=== PATIENT | female | born 1990 | race Caucasian/White ===

== ENCOUNTER 2019-09-06 11:58 | Emergency (ER) | payer MEDICAID, SELFPAY ==
[2019-09-06 12:00] VITALS: BP 109/73; PULSE 87; RESP 17; TEMP 36.9; O2SAT 99; BMI 26.4
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
--- NOTE | 2019-09-06 13:28 | ED.RN ---
pt very agitated. Pt spoke with social work and wants help with addiction. Pt stating that she needs suboxone or an opiate right now to get her through. she continued to say that she was sick and that she could get on a plane and be at a suboxone clinic today. Social work tried to explain to her that we could help her here and she wanted something immediately instead of a few hours. Pt denied suicidal ideations to multiple staff members. Pt left the department and is planning on flying to [place] to get into the suboxone clinic today.
== END 2019-09-06 13:32 | disposition home or self-care (01) ==
LOC: ED 12:39
PROVIDERS: Emergency Provider Emergency Medicine
DX: F15.10 Other stimulant abuse, uncomplicated (principal); F11.10 Opioid abuse, uncomplicated; F17.200 Nicotine dependence, unspecified, uncomplicated
CPT/HCPCS: 99283

== ENCOUNTER 2019-09-13 22:16 | Inpatient (IN) | payer MEDICAID, SELFPAY ==
[2019-09-13 22:19] VITALS: BP 136/78; PULSE 71; RESP 20; TEMP 36.7; O2SAT 98; BMI 26.6
--- NOTE | 2019-09-13 22:23 | EKG12_ITS ---
Test Reason : SUICIDAL Blood Pressure : / mmHG Vent. Rate : 079 BPM Atrial Rate : 079 BPM P-R Int : 126 ms QRS Dur : 086 ms QT Int : 380 ms P-R-T Axes : 034 045 025 degrees QTc Int : 435 ms Normal sinus rhythm Normal ECG Confirmed by MATT MORAN ([id number]), editor managing newspaper NICK MUÑOZ ([id number]) on 09/17/2019 3:42:48 PM Referred By: PAULA Confirmed By:MATT MORAN
--- NOTE | 2019-09-13 22:24 | ED.VIS.GEN ---
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 Patient was seen here about a week ago. At that point, she states that she was going through withdrawal but had a plan set up to get into a detox program. She was depressed, but had made no threats of self-harm. She was discharged home. [place], police were called to the house. She apparently had told her parents that she had plan to kill herself. She had told the deputy that if we discharge her from the emergency department, she would stay outside and intent to freeze to . She also told her parents that she was going to kill their other child who was at work. The patient does admit to heroin and methamphetamine use. She has not been hospitalized for suicidal thoughts before she states. Prior similar symptoms: Yes Recent Illness/Hospitalization: No Past Medical History - Allergies and Home Meds Allergies/Adverse Reactions: Allergies clindamycin Adverse Reaction (Verified 09/13/19 22:17) Vomiting red meats Allergy (Uncoded 09/13/19 22:17) Food Allergy Primary Care Physician: Care Physician,No Primary [Primary Care Provider] - Prior records reviewed: Yes Past Medical History: - - History of drug abuse Surgical History: noncontributory Smoking Status: Current every day smoker Review of Systems General: Denies: Chills, Fever, Sweats Eyes: Denies: Visual changes - bilaterally, Diplopia ENT: Denies: Rhinorrhea, Sore throat Cardiovascular: Denies: Chest pain, Palpitations Respiratory: Denies: Dyspnea, Cough, Dyspnea on exertion Gastrointestinal: Denies: Abdominal pain, Nausea, Vomiting, Diarrhea, Melena, Hematochezia Genitourinary: Denies: Dysuria, Hematuria, Frequency Musculoskeletal: Reports: Arthralgias. Denies: Back pain, Extremity Pain Skin: Denies: Rash, Wounds Neurological: Denies: Headache, Weakness, Numbness Psych: Reports: Depression, Suicidal thoughts Physical Exam Inital Vital Signs reviewed: Yes General: Well nourished, Well developed, Unkempt, No Acute Distress Head: Normocephalic, Atraumatic Eyes: Perrl, EOMI ENT: Moist mucous membranes, No rhinorrhea Neck: Supple, Nontender Cardiovascular: Regular rate, Regular rhythm, No murmurs Respiratory: No distress, CTA bilaterally, Chest nontender Abdomen: Soft, Nontender, Nondistended, Normal bowel sounds Back: Nontender, Normal Inspection Extremities: Nontender, No edema Skin: Normal color, No rash Neurological: Oriented x3, Cranial nerves II-XII grossly intact, Normal Strength, Normal Sensation, Hyperalert Psychological: Depressed, Agitated Diagnostic/Tx/Re-eval - Medical Decision Making The patient presents with decompensated behavior. She was making suicidal threats, had threatened her father, and had threatened her brother. She also made threats to the police that if she was discharged, she would try to hide outside and freeze to so she would . The patient is disorganized in her speech, but I do feel that she is a significant risk to herself. She was agitated towards nursing staff, so she was given Geodon, Benadryl, and Ativan. Screening labs will be obtained. The plan will be for crisis evaluation given the patient's suicidal and homicidal threats. Disposition is currently pending. Impression 1. Suicidal ideation with plan 2. Homicidal ideation ED Disposition - Plan for ED Patient: Referrals: Care Physician,No Primary [Primary Care Provider] -
--- NOTE | 2019-09-13 22:26 | ED.RN ---
EKG DELAYED TILL PT CALMS DOWN
--- NOTE | 2019-09-13 22:45 | ED.RN ---
patient denies any SI comments to nursing staff. [facility] has statments from family stating patient has made comments tonight with a plan. Patient placed in SI precautions at this time until patient can been seen by crisis
[2019-09-13] MEDS: LORazepam 1 MG Tablet 2 MG PO (23:00)
[2019-09-13] MEDS: DiphenhydrAMINE 25 MG Capsule 50 MG PO (23:00)
[2019-09-13] MEDS: Ziprasidone IM 20 MG/ML VIAL IM (23:11)
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
[2019-09-13 23:23] VITALS: RESP 16
[2019-09-13 23:59] LABS: Absolute Lymphocyte Count 2.44 X10^3/uL (0.83-4.51); Absolute Neutrophil Count 2.1 X10^3/uL (2.0-7.7); Basophil# 0.04 X10^3/uL; Basophil% 0.8 % (0-1); Eosinophil# 0.36 X10^3/uL; Eosinophils% 6.8 % (0-5); Hematocrit 37.9 % (37-47); Hemoglobin 12.7 g/dL (12.0-15.0); Lymphocyte # 2.44 X10^3/ul (4.0); Lymphocyte % 45.9 % (19-41); Mean Corp Hgb Conc 33.5 g/dL (32-36); Mean Corpuscular Hgb 31.1 pg (27.0-32.0); Mean Corpuscular Volume 92.7 fL (81-99); Mean Platelet Vol. 8.9 fl (6.2-12.0); Monocyte# 0.36 X10^3/uL; Monocyte% 6.8 % (0-10); NRBC Flagged by Analyzer 0 % (0-5); Neutrophil # 2.11 X10^3/uL (2.7-7.7); Neutrophil % 39.5 % (47-70); Platelet Count 279 K/mm3 (150-450); RBC Distribution Width CV 13.2 % (11.6-14.6); RBC Distribution Width SD 44.3 fl (35.1-43.9); Red Blood Count 4.09 M/mm3 (4.2-5.4); White Blood Count 5.3 K/mm3 (4.4-11.0)
[2019-09-14] VITALS (25 sets, daily range): BP systolic 98–126; BP diastolic 57–87; PULSE 60–120; RESP 12–18; TEMP 36.6–36.9; O2SAT 89–100; BMI 25.1
[2019-09-14 00:16] LABS: ALB/GLOB Ratio 0.9 RATIO (0.9-2.4); AST(SGOT) 6 U/L (15-37); Alanine Aminotransfer ALT/SGPT 11 U/L (13-56); Albumin, Serum 3.2 g/dL (3.2-5.0); Alkaline Phosphatase 67 U/L (45-117); Anion Gap 4 (5-15); BUN 10 mg/dL (7-18); BUN/Creat Ratio 12.8 RATIO (10-20); Calcium,Total 8.8 mg/dL (8.5-10.1); Chloride 110 mmol/L (98-107); Creatinine, Serum 0.78 mg/dL (0.55-1.02); EST Glomerular Filtration Rate 92 mL/min (>60); Est Glom Filt Rate - Afr Amer 111 mL/min (>60); Estimated Creatinine Clearance 97.83 ml/min; Globulin 3.6 g/dL (2.2-4.2); Glucose 96 mg/dL (74-106); Internal QC Validated? YES +Cl - CLEAR BKGD; Potassium 3.8 mmol/L (3.5-5.1); Pregnancy, Serum, hCG Quali. NEGATIVE Negative; Protein, Total 6.8 g/dL (6.4-8.2); Sodium Level 143 mmol/L (136-145)
[2019-09-14 00:19] LABS: Alcohol, Blood (Medical)-Serum < 3.0 mg/dL
[2019-09-14 00:40] LABS: Amphetamine Urine VISTA POSITIVE (<1000 ng/mL); Barbiturate Urine VISTA NEGATIVE (< 200 ng/mL); Benzodiazepine Urine VISTA NEGATIVE (< 200 ng/mL); Cocaine Urine VISTA NEGATIVE (< 300 ng/mL); Ecstacy Urine VISTA NEGATIVE (< 500 ng/mL); Methadone Urine VISTA NEGATIVE (< 300 ng/mL); PCP Urine VISTA NEGATIVE (< 25 ng/mL); THC Urine VISTA NEGATIVE (< 50 ng/mL); Vista UDS pH Range 6
--- NOTE | 2019-09-14 00:40 | ED.RN ---
crisis called to see patient at this time
--- NOTE | 2019-09-14 00:42 | ED.RN ---
crisis called back to see patient
--- NOTE | 2019-09-14 01:26 | ED.RN ---
PER MARIN FROM CRISIS, THE PT IS UNABLE TO BE ASSESSED PROPERLY, DUE TO NOT WAKING. [facility] IS REQUIRING A FULL ASSESSMENT BEFORE REFERRAL. [facility] WILL BE HERE FIRST THING IN THE MORNING FOR THIS ASSESSMENT
[2019-09-14 01:40] LABS: CPK Total, Creatine Kinase 47 U/L (26-192); Thyroid Stim Hormone (TSH) 1.84 uIU/mL (0.358-3.74)
--- NOTE | 2019-09-14 05:33 | ED.RN ---
breakfast order placed with dietary.
--- NOTE | 2019-09-14 09:21 | NURSING ---
Sp[facility] with [facility]; updated that pt awakens but not interactive at this time; they are waiting until pt more awake in order to do a full assessment.
--- NOTE | 2019-09-14 10:31 | ED.RN ---
this rn into room to offer food and drink. pt states not hungry nor thirsty at this point
--- NOTE | 2019-09-14 10:42 | ED.RN ---
crises contacted. will be in to assess pt
--- NOTE | 2019-09-14 11:53 | ED.RN ---
jonny here to evaluate pt.
--- NOTE | 2019-09-14 12:53 | ED.RN ---
talked with crises worker. plan to hospitalize pt at [facility]. decision to not tell pt at this time due to pt becoming agitated
--- NOTE | 2019-09-14 13:14 | ED.DCSUM_ITS ---
- ER Visit Summary Date of Service: 09/14/19 Patient was seen by me in signout. She is calm and collected I talked to crisis, she will be pink slipped since she did threaten to kill others and kill herself she still tells us that she hates her brother and has quite a bit of animosity towards him. For her safety and the safety of others she will be pink slipped. So far she remains physically stable, she is angry but she is calm and has not needed further sedation. This note was generated with [employer] dictation software. It may contain incorrect words, spelling, and punctuation that were not noted in review of the chart prior to signing ED Disposition - Plan for ED Patient: Referrals: Care Physician,No Primary [Primary Care Provider] -
--- NOTE | 2019-09-14 13:17 | ED.RN ---
pt informed of decision to hospitalize pt for psychiatric treatment. hro officer kaylyn at bedside. pt requesting to smoke. understands our protocol does not allow this. pt will be given nicoderm pts
--- NOTE | 2019-09-14 13:53 | ED.RN ---
Rosanna from crises in to talk with pt again per pt request. pt becomes extremely agitated. pt up pacing from side to side. pt in face of crises worker and in pt face. this rn summoned security. pt continues to be aggressive towards staff. this rn walks in room after concern for crises member safety. pt angry. pt demands cigarette and Suboxone. aware that that will not occur at this fcility. pt states unable to use nicoderm patch because she becomes very sick. while crises and security in room pt begins to yell that just give me a huge shot of fentanyl and let that be the end of things. when confronted with statement that that sounds like pt wants to pt becomes angry again. this rn attempted to talk with pt. agreement that if pt can remain in bed,remain nonaggressive pt will not be medicated. pt aware if she gets out of bed or threatens anyone she will be medicated
--- NOTE | 2019-09-14 15:03 | ED.RN ---
Rosanna from [facility] called to say that info has been faxed to [facility]. Rosanna states that [facility] will review and contact this hospital by 11 pm to verify pt acceptance. Rosanna states that [facility] is currently working off a wait list and earliest possible date for a room assignment at this time is possibly as late as Tuesday. [facility] states they will continue to check in on patient and update as necessary
--- NOTE | 2019-09-14 17:48 | ED.RN ---
pt again requesting a nicoderm patch. this rn asked pt again regarding the fact she states she gets sick. pt states i just said that because i wanted a real cigarrette. dr padilla. patch ordered
--- NOTE | 2019-09-14 22:05 | ED.RN ---
2100: DR. TAYLOR NOTIFIED THAT PT STATES SHE FEELS LIKE SHE IS WITHDRAWING WITH LAST HEROIN USE ON THE 5TH. VITALS OBTAINED, HR OF [address] TAYLOR[address] VERBALIZES UNDERSTANDING AND GOES TO ASSESS PATIENT. DR. TAYLOR TO SPEAK WITH HOSPITALIST
--- NOTE | 2019-09-14 22:16 | HP.PCM_ITS ---
Problem List (1) Opiate withdrawal Status: Acute (2) Suicidal ideations Status: Acute (3) Homicidal ideations Status: Acute (4) Anxiety and depression Status: Chronic (5) Bipolar disorder Status: Chronic Qualifiers: Active/Remission status: remission status unspecified Qualified Code(s): F31.9 - Bipolar disorder, unspecified (6) Tobacco use Status: Chronic History of Present Illness Date of Admission: 09/14/19 Chief Complaint: Heroin withdrawal, recent SI presentation The patient is a 29 y/o F w/ PMHx: Anxiety and Depression/Bipolar disorder, Tobacco use, Polysubstance abuse specifically with heroin usually 1/2 g snorted, lasting her every 2 days, fentanyl 1/2 g snorted, lasting her every 2 days, crystal meth which she sometimes snorts or smokes last usage of all of these items on 09/05/2019 with following this onset significant hallucinations, agitation, reportedly told her parents that she was intent upon killing herself specifically stating she would stay outside in the cold weather and freeze to in addition to stating that she was going to kill her brother prompting police to bring her to the emergency room for evaluation on 09/13/2019 where patient remained, initially necessitating Geodon administration secondary to severity of agitation but following this is improved and remained on suicide/homicide precautions. Patient clinically became more calm but had onset of tremors, tachycardia, concern for withdrawal symptoms with heart rate 120, BP 117/87, respiratory rate 18, 100% on room air, CBC with WBC 5.3, hemoglobin 12.9, platelet 279 with no evidence of left shift, unremarkable CMP, TSH 1.84, serum testing negative, total creatinine kinase 47, tox screen with positive amphetamine, alcohol level less than 3. Discussed presentation frankly with the patient and she notes that she had been also seen approximately 1 week prior to initial presentation in the ED with at that time complains of withdrawal symptoms and plan for outpatient facility evaluation for withdrawal treatment but attempted to wean herself with onset as noted above aggressive behavior, agitation, hallucinations with suicidal and homicidal ideations. From discussion with ED physician patient has been accepted at [facility] but there are no beds available until Tuesday or Tuesday. Past Medical History Past Medical History (Chronic Problems): Chronic Problems Anxiety and depression (Chronic) Bipolar disorder (Chronic) Tobacco use (Chronic) Allergies clindamycin Adverse Reaction (Verified 09/13/19 22:17) Vomiting red meats Allergy (Uncoded 09/13/19 22:17) Food Allergy Home Medications: Ambulatory Orders Medication Instructions Recorded NK 09/13/19 Surgical History: - - Oral surgery, left knee arthroscopic surgery. Psychiatric History: Anxiety, Bipolar, Depression, - - Homicidal and suicidal ideations during current presentation. HEALTH SERVICES MANAGER History: No pertinent HEALTH SERVICES MANAGER history Lives: With Family - Patient is currently living with her parents. Smoking Status: Current every day smoker - Ongoing 1 pack/day cigarette tobacco usage since she was younger. Tobacco Use: Cigarettes Alcohol: Occasional Drugs: - - Heroin snorted, fentanyl snorted, crystal meth snorted and occasionally smoked. - *Family History Maternal History Items: - - Patient notes a maternal family history of heart disease. Paternal History Items: - - Patient notes paternal family history of prostate cancer. Review of Systems Constitutional: Reports: Malaise, Weakness, Fatigue. Denies: Anorexia, Chills, Fever, Weight Change HEENT: Reports: Nasal Congestion, Post Nasal Drip, Sinus Congestion. Denies: Head Aches, Sinus Drainage Cardiovascular: Denies: Chest Pain, Palpitations Respiratory: Denies: Cough, Shortness of breath at rest, Sputum production Gastrointestinal: Reports: Nausea. Denies: Abdominal Pain, Vomiting Genitourinary: Denies: Dysuria Musculoskeletal: Reports: Joint Pain, Muscle pain. Denies: Joint Tenderness Skin: Denies: Rash, Wounds Neurological: Reports: Tremor. Denies: Focal weakness, Numbness, Tingling Psychiatric: Reports: Anxiety, Depression, Homicidal Ideations, Suicidal Ideations Hematologic/ Lymphatic: Denies: Easy Bruising, Easy Bleeding VTE Information - Inpt Only VTE Present on Admission: No VTE Mechan Device Prophylaxis: None VTE Pharm Prophylaxis ordered?: No Reason prophylaxis not ordered:: Treatment Not Indicated Patient Problems: Active and Suspected Problems Opiate withdrawal (Acute) Suicidal ideations (Acute) Homicidal ideations (Acute) Subjective: Seated upright in the ED bed, quick speech, mild tremors present. Objective: Physical Examination: General: awake, alert, oriented to self, place, recent events, currently remains cooperative but previously was extremely agitated, seated upright in the ED bed, mildly agitated, quick movements, mild tremor present. Skin: normal color, turgor, no icterus, cyanosis, no obvious track plascencia. HEENT: AT/NC, EOMI, PERRLA, dry MM, no carotid bruits or JVD noted. Lungs: CTA bilaterally, moderate effort, moderate decrease BL bases, no rales, ronchi or wheezing. Heart: Tachycardic with regular rhythm; no gallop, rub audible. Abdomen: soft, NTTP, ND, normal BS, no HSM. Extremities: no cyanosis, clubbing, or edema. Neurological: patient awake, alert, oriented as noted; cognitive function suspec t improving, nearing likely baseline intact; pupils equally reactive to light and accomodation; cranial nerves II-XII grossly normal, moving all 4 extremities, no focal deficits, strength moderately global decrease secondary to acute presentation. Psychiatric: affect appears currently calm, previously was significantly agitated, admits to suicidal and homicidal ideations, states it was secondary to drug withdrawal, currently denies. - Physical Exam Vitals/I&O's: Vital Signs Temp Pulse Resp BP Pulse Ox 97.8 F 120 H 18 117/87 H 100 09/14/19 08:17 09/14/19 21:00 09/14/19 22:00 09/14/19 21:00 09/14/19 21:00 Oxygen Delivery Method Room Air Weight: 164 lb 14.492 oz Body Mass Index (BMI) 26.6 Laboratory Results 09/13/19 00:20: Urine Opiates Screen NEGATIVE, Urine Methadone Screen NEGATIVE, Ur Barbiturates Screen NEGATIVE, Ur Phencyclidine Scrn NEGATIVE, Ur Amphetamines Screen POSITIVE H, U Methamphetamin-MDMA NEGATIVE, U Benzodiazepines Scrn NEGATIVE, Urine Cocaine Screen NEGATIVE, U Cannabinoids Screen NEGATIVE, Ur Drug Screen Comment 09/13/19 23:50: WBC 5.3, RBC 4.09 L, Hgb 12.7, Hct 37.9, MCV 92.7, MCH 31.1, MCHC 33.5, RDW Std Deviation 44.3 H, RDW Coeff of Halina 13.2, Plt Count 279, MPV 8.9, Immature Gran % (Auto) 0.200, Neut % (Auto) 39.5 L, Lymph % (Auto) 45.9 H, Marinette % (Auto) 6.8, Eos % (Auto) 6.8 H, Baso % (Auto) 0.8, Absolute Neuts (auto) 2.1, Absolute Lymphs (auto) 2.44, Nucleated RBC % 0 09/13/19 23:50: Sodium 143, Potassium 3.8, Chloride 110 H, Carbon Dioxide 29.0, Anion Gap 4 L, BUN 10, Creatinine 0.78, Estim Creat Clear Calc 97.83, Est GFR (MDRD) Af Amer 111, Est GFR (MDRD) Non-Af 92, BUN/Creatinine Ratio 12.8, Glucose 96, Calcium 8.8, Total Bilirubin 0.30, AST 6 L, ALT 11 L, Alkaline Phosphatase 67, Total Protein 6.8, Albumin 3.2, Globulin 3.6, Albumin/Globulin Ratio 0.9 09/13/19 23:50: Ethyl Alcohol < 3.0 09/13/19 23:50: Serum , Qual NEGATIVE 09/13/19 23:50: Total Creatine Kinase 47, TSH 1.84 Assessment/Plan All Active Problems Opiate withdrawal (Acute) Suicidal ideations (Acute) Homicidal ideations (Acute) The patient is a 29 y/o F w/ PMHx: Anxiety and Depression/Bipolar disorder, Tobacco use, polysubstance abuse with heroin, fentanyl and crystal meth with recent self attempts for discontinuation with last usage on 09/05/2019 with following onset significant hallucinations with suicidal and homicidal ideations presented to the ED initially on 09/13/2019 for evaluation. 1. Acute Opiate Withdrawal: Will admit to [facility], routine labs obtained in the ED, will initiate and continue on tapering course of Subutex, PRN regimens for symptom control including Catapres, Bentyl, Vistaril, IV fluids, IV antiemetics, Tylenol as needed for pain. Will consult case management as well as crisis given patient improvement suspect acute homicidal and suicidal ideation secondary to significant withdrawal, will have reevaluation and if necessary continue with plan for transition to psychiatric facility on Tuesday versus Tuesday when bed is available. 2. Suicidal and homicidal ideations with history of anxiety and depression/bipolar disorder, untreated: Suspect presentation associated with acute withdrawal with fentanyl, heroin and crystal meth usage, will maintain on suicide precautions, will reconsult crisis as patient has been clinically improving and suspect presentation likely secondary to acute withdrawal. If crisis still feels its appropriate will continue with patient transition once bed available at psychiatric facility. 3. Polysubstance Abuse, denied history of IV drug abuse: Although patient does deny history of IV drug abuse significant polysubstance use history, discussed frankly and will obtain hepatitis panel as well as HIV to which patient is amenable. 4. Tobacco Abuse: Encouraged cessation, inpatient consultation per RT, NR if desired. 5. DVT prophylaxis: Low risk, defer. Code Visit Inpatient E&M: 90870 Init Hosp L3
--- NOTE | 2019-09-14 22:19 | ED.DCSUM_ITS ---
- ER Visit Summary Date of Service: 09/14/19 Patient signed out to me awaiting placement at [facility]. As notified by nursing staff that patient feels like she is starting to go into withdrawal. She is feeling shaky and sweaty. When nurse checked her vital signs heart rate was 120. I went to examine the patient. Patient does appear anxious. Heart rate for me is in the 90s. No visible tremor noted but patient does feel shaky. I spoke with the hospitalist. Patient reports her last use of heroin was on September 05 and last use of meth was yesterday. Hospitalist will see the patient and plan to admit to the floor for withdrawal and will keep sitter with the patient for suicidal ideation. Disposition: Admit Impression: 1. Drug withdrawal 2. Suicidal ideation This note was generated with Calm dictation software. It may contain incorrect words, spelling, and punctuation that were not noted in review of the chart prior to signing ED Disposition - Plan for ED Patient: Referrals: Care Physician,No Primary [Primary Care Provider] -
--- NOTE | 2019-09-14 22:51 | ED.RN ---
PT MED LIST AND ALCOHOL LEVEL FAXED TO [facility]
[2019-09-15] VITALS (7 sets, daily range): BP systolic 105–133; BP diastolic 68–92; PULSE 70–83; RESP 16; TEMP 36.4–36.7; O2SAT 95–100
[2019-09-15] MEDS: Buprenorphine HCl 2 MG TAB.SUBL SL ×2 (00:39→08:44)
[2019-09-15] MEDS: Lactated Ringers 1,000 ML 125 ML IV (00:52)
[2019-09-15] MEDS: Mag Hydrox/Al Hydrox/Simeth 30 ML UDC PO (05:16)
--- NOTE | 2019-09-15 08:45 | NURSING ---
Spoke with Nilo the pharmacist and he said to give 4 mg as ordered.
--- NOTE | 2019-09-15 11:04 | NURSING ---
pt c/o nausea and sweating/ hot/cold, refused all prn meds at this time.
--- NOTE | 2019-09-15 11:38 | PN_ITS ---
<Dianne Katz - Last Filed: 09/15/19 12:21> Patient Problems: Active and Suspected Problems Opiate withdrawal (Acute) Suicidal ideations (Acute) Homicidal ideations (Acute) Subjective: Patient seen and examined. Denies current withdrawal symptoms. Denies suicidal or homicidal ideations. Patient very talkative. States she would like to go home today and seek inpatient treatment on her own. Patient reports she read reviews on [facility] and does not want to go there at discharge. Will ask crisis to see patient and if she is cleared by crisis, she may then leave AGAINST MEDICAL ADVICE. - Physical Exam Vitals/I&O's: Vital Signs Temp Pulse Resp BP Pulse Ox 98.0 F 80 16 105/68 100 09/15/19 10:55 09/15/19 10:57 09/15/19 10:55 09/15/19 10:55 09/15/19 10:55 Oxygen Delivery Method Room Air Weight: 155 lb 10.342 oz Body Mass Index (BMI) 25.1 Intake and Output for Last 24 Hours 09/13/19 09/14/19 09/15/19 23:59 23:59 23:59 Intake Total 970.83 / 970.83 Output Total 0 / 0 Balance 970.83 / 970.83 General: Alert, Oriented x3, Cooperative HEENT: Atraumatic, PERRLA, EOMI, Normocephalic Oral: - - Poor dentition Neck: Supple, No JVD, Negative Carotid Bruits Lungs: Clear to auscultation, Normal air movement Cardiovascular: Regular rate, Regular Rhythm, Normal S1, Normal S2, No murmurs Abdomen: Bowel Sounds Present, Soft, Non Tender, Non-Distended Extremities: No clubbing, No cyanosis, No edema, Capillary Refill Less than 3 Seconds Skin: No rashes, No breakdown Musculoskeletal: No Tenderness to Palpation of Joints or Extremities Neurological: Cranial nerves II-XII grossly intact, Neuro grossly intact Psych/Mental Status: Flat Affect Laboratory Results 09/14/19 06:09: Hepatitis A IgM Ab Pending, Hepatitis A Ab Total Pending, Hep Bs Antigen Pending, Hep B Core Total Ab Pending, Hep B Core IgM Ab Pending 09/14/19 06:09: HIV 1&2 Antibody Pending Current Medications Acetaminophen (Tylenol) 500 mg PO Q4H PRN PRN PRN Reason: Temp > 100.4 F Bisacodyl (Dulcolax) 10 mg RECTAL DAILY PRN PRN PRN Reason: Constipation Buprenorphine HCl (Buprenorphine Hcl) 4 mg SL Q8H [facility]; Taper Stop: 09/18/19 04:19 Last Admin: 09/15/19 08:44 Dose: 4 mg Documented by: Calcium Carbonate (Tums) 500 mg PO Q4H PRN PRN PRN Reason: heart burn Clonidine (Catapres) 0.1 mg PO Q2H PRN PRN PRN Reason: Hot/Cold Sweats or Anxiety Dicyclomine HCl (Bentyl) 20 mg PO Q6H PRN PRN PRN Reason: Abdomnial Discomfort Glucagon () 1 mg IM .X1 PRN PRN Reason: Hypoglycemia Hydroxyzine HCl (Vistaril Vial) 50 mg IM Q6H PRN PRN PRN Reason: Breakthrough Anxiety Hydroxyzine Pamoate (Vistaril Pamoate Capsule) 50 mg PO Q6H PRN PRN PRN Reason: Mild Anxiety Dextrose (Dextrose 10%-Water) 250 mls @ 999 mls/hr IV .Q16M PRN; Protocol PRN Reason: HYPOGLYCEMIA Ibuprofen (Motrin) 600 mg PO Q8H PRN PRN PRN Reason: Pain Score 1-5/10 Loperamide HCl (Imodium) 2 - 4 mg PO UD PRN PRN Reason: LOOSE STOOLS Methocarbamol (Methocarbamol) 750 mg PO Q6H PRN PRN PRN Reason: Muscle Aches Nicotine (Nicoderm Cq (Pbkc)) 21 mg TRANSDERM. DAILY [facility] Last Admin: 09/15/19 08:49 Dose: 21 mg Documented by: Nutritional Formula (Lactose Free) (Ensure Enlive) 120 ml PO 4X/DAY [facility] Last Admin: 09/15/19 08:49 Dose: 120 ml Documented by: Ondansetron HCl (Zofran Odt) 4 mg PO Q6H PRN PRN PRN Reason: NAUSEA Pramipexole Dihydrochloride (Mirapex) 0.25 mg PO Q12H PRN PRN PRN Reason: Restless Legs Senna (Senokot) 1 tablet PO QHS PRN PRN PRN Reason: Constipation Sodium Chloride () 10 - 40 ml IV UD PRN PRN Reason: SALINE FLUSH Trazodone HCl (Desyrel) 50 mg PO QHS [facility] Medical Necessity - Tobacco Use Smoking Status: Current every day smoker Tobacco Use: Cigarettes Assessment/Plan All Active Problems Opiate withdrawal (Acute) Suicidal ideations (Acute) Homicidal ideations (Acute) 1. Acute opioid withdrawal-medical stabilization per protocol. Continue Subutex taper, PRN regimen for somatic complaints. Case management and crisis consulted. Plan to transition to psychiatric facility when bed is available. 2. Suicidal and homicidal ideations with history of anxiety, depression, bipolar disorder-patient accepted at [facility] however no beds available until Tuesday or Tuesday. Plan to stabilize #1 and transfer to inpatient psychiatric facility for further treatment pending medical stabilization and bed availability. Crisis consulted. 3. Polysubstance abuse-tox screen positive for amphetamines. Hep panel pending. 4. Tobacco dependence-encourage cessation. DVT prophylaxis-not indicated, low risk This patient was seen by YAAKOV Cuevas under the supervision of Dr. Canales. <Nick Canales - Last Filed: 09/15/19 13:38> Subjective: Patient states she is normal crystal meth. Initially she was on buprenorphine but then she started taking Percocet in order to avoid withdrawal. She has not used IV heroin recently. Having anxiety, restlessness but she is scoring. She is understanding. - Physical Exam Vitals/I&O's: Vital Signs Temp Pulse Resp BP Pulse Ox 98.0 F 80 16 105/68 100 09/15/19 10:55 09/15/19 10:57 09/15/19 10:55 09/15/19 10:55 09/15/19 10:55 Oxygen Delivery Method Room Air Weight: 155 lb 10.342 oz Body Mass Index (BMI) 25.1 Intake and Output for Last 24 Hours 09/13/19 09/14/19 09/15/19 23:59 23:59 23:59 Intake Total 970.83 / 970.83 Output Total 0 / 0 Balance 970.83 / 970.83 General: Alert, Oriented x3, Cooperative HEENT: Atraumatic, PERRLA, EOMI, Normocephalic Oral: No Gingival or Mucosal Lesions/ Ulcerations, - Neck: Supple, No JVD, Negative Carotid Bruits Lungs: Clear to auscultation, Normal air movement, No rhonchi, No wheeze, No rales Cardiovascular: Regular rate, No murmurs Abdomen: Bowel Sounds Present, Soft, Non Tender, No Hepato-splenomegaly Extremities: No edema, Capillary Refill Less than 3 Seconds Skin: No rashes, No breakdown Musculoskeletal: No Tenderness to Palpation of Joints or Extremities Neurological: Cranial nerves II-XII grossly intact, Deep Tendon Reflexes 2+/4 and Symmetrical, Neuro grossly intact Psych/Mental Status: Normal Affect, Appropriate Laboratory Results 09/14/19 06:09: Hepatitis A IgM Ab Pending, Hepatitis A Ab Total Pending, Hep Bs Antigen Pending, Hep B Core Total Ab Pending, Hep B Core IgM Ab Pending 09/14/19 06:09: HIV 1&2 Antibody Pending Current Medications Acetaminophen (Tylenol) 500 mg PO Q4H PRN PRN PRN Reason: Temp > 100.4 F Bisacodyl (Dulcolax) 10 mg RECTAL DAILY PRN PRN PRN Reason: Constipation Buprenorphine HCl (Buprenorphine Hcl) 4 mg SL Q8H [facility]; Taper Stop: 09/18/19 04:19 Last Admin: 09/15/19 08:44 Dose: 4 mg Documented by: Calcium Carbonate (Tums) 500 mg PO Q4H PRN PRN PRN Reason: heart burn Clonidine (Catapres) 0.1 mg PO Q2H PRN PRN PRN Reason: Hot/Cold Sweats or Anxiety Dicyclomine HCl (Bentyl) 20 mg PO Q6H PRN PRN PRN Reason: Abdomnial Discomfort Glucagon () 1 mg IM .X1 PRN PRN Reason: Hypoglycemia Hydroxyzine HCl (Vistaril Vial) 50 mg IM Q6H PRN PRN PRN Reason: Breakthrough Anxiety Hydroxyzine Pamoate (Vistaril Pamoate Capsule) 50 mg PO Q6H PRN PRN PRN Reason: Mild Anxiety Dextrose (Dextrose 10%-Water) 250 mls @ 999 mls/hr IV .Q16M PRN; Protocol PRN Reason: HYPOGLYCEMIA Ibuprofen (Motrin) 600 mg PO Q8H PRN PRN PRN Reason: Pain Score 1-5/10 Loperamide HCl (Imodium) 2 - 4 mg PO UD PRN PRN Reason: LOOSE STOOLS Methocarbamol (Methocarbamol) 750 mg PO Q6H PRN PRN PRN Reason: Muscle Aches Nicotine (Nicoderm Cq (Pbkc)) 21 mg TRANSDERM. DAILY [facility] Last Admin: 09/15/19 08:49 Dose: 21 mg Documented by: Nutritional Formula (Lactose Free) (Ensure Enlive) 120 ml PO 4X/DAY [facility] Last Admin: 09/15/19 08:49 Dose: 120 ml Documented by: Ondansetron HCl (Zofran Odt) 4 mg PO Q6H PRN PRN PRN Reason: NAUSEA Pramipexole Dihydrochloride (Mirapex) 0.25 mg PO Q12H PRN PRN PRN Reason: Restless Legs Senna (Senokot) 1 tablet PO QHS PRN PRN PRN Reason: Constipation Sodium Chloride () 10 - 40 ml IV UD PRN PRN Reason: SALINE FLUSH Throat Lozenges (Cepacol Sore Throat Lozenge) 1 lozenge MUCOUS MEM Q2H PRN PRN PRN Reason: SORE THROAT Trazodone HCl (Desyrel) 50 mg PO QHS [facility] Assessment/Plan This patient was seen in conjunction with Dianne POOLE. I have independently interviewed and examined the patient and reviewed pertinent history, examination findings, laboratory and plan of management. I have reviewed the note and agree with the documented findings with the few additional points. In brief, patient is admitted for acute opioid withdrawal. Patient not compliant to the hospital medications and is refusing the dosing schedule of Subutex. I tried to convince her to follow the medication regimen and timing. U tox is positive for amphetamine. Hepatitis and HIV panel pending. She is medically stable for evaluation for crisis management team. They do not have beds available now. She has history of suicidal and homicidal ideation. She denies any suicidal attempt in the past. Need further assessment from crisis management team and inpatient psych transfer I have discussed my assessment with Dianne POOLE and orders have been reviewed. Code Visit Inpatient E&M: 59629 Subs Hosp L2
--- NOTE | 2019-09-15 12:23 | NURSING ---
aware per Dr. Canales and Dianne Katz SPECIAL EDUCATION SUPERINTENDENT pt is medically cleared. Crisis notified.
--- NOTE | 2019-09-15 13:11 | NURSING ---
crisis here seeing patient now.
[2019-09-15] MEDS: Ondansetron ODT 4 MG Tablet PO (14:08)
--- NOTE | 2019-09-15 16:42 | NURSING ---
in w/ primary RN to talk with pt at her request for approx. 15-20minutes. pt verbalized upset in the hospital, verbalized she wishes to have a copy of the pink slip. verbalized she did not want to take buprenorphrine that she does not feel she is withdrawing from opiates. she states she has not used opiates for a week and a half, that she was with drawing from crystal meth. states she would like to talk with the physician. informed her this nurse will let the physician know she wishes to talk with him, that she is refusing buprenorphrine, and that she can go through medical records for a copy of the documents she is requesting. patient given form to complete for medical records. pt again informed that at this point she is pink slipped, and may not leave the unit. Dr. Canales and Dianne Katz CLASSIFIED ADVERTISING CLERK informed of above. Aware per Dianne that patient may refuse medication, she had talked with crisis about concerns that the pt was suicidal and homicidal while withdrawing from meth. and that if she leaves she will use and end up suicidal or homicidal again.
--- NOTE | 2019-09-15 17:50 | NURSING ---
aware per Dianne Katz RADIATION MONITOR and she talked with egg worker Franchesca, states pt is no longer pink slipped and [facility] has refused admission stating pt is no longer homicidal or suicidal. Aware she will talk with house painter about removal of suicide sitter.
--- NOTE | 2019-09-15 18:09 | NURSING ---
recieved text from nerissa kruger NP. aware she talked with social secretary and supercharger repair supervisor and at this point now keeping with pink slip and suicide sitter. Primary RN informed.
--- NOTE | 2019-09-15 18:15 | CASEMGMT ---
SOCIAL WORK SPOKE WITH VIRGILIO CACERES WHO REPORTS PATIENT WAS DECLINED AT [facility]. REQUESTING THIS WORKER CALL AND SPEAK WITH CRISIS REGARDING SAFE D/C PLANNING FOR PATIENT. CALL TO [facility] SPECIAL [facility]EL[facility]. PER [facility], PATIENT HAS BEEN DECLINED AT [facility] THEY ARE STATING PATIENT IS NOT SUICIDAL OR HOMICIDAL. PATIENT WITH HX OF SUBSTANCE ABUSE. [facility] WILL CONTACT ONE EIGHTY TO SEE IF SOMEONE WOULD BE AVAILABLE TO TALK WITH PATIENT PRIOR TO D/C. [facility] TO CALL VIRGILIO CACERES TO UPDATE. Josefa BARROS, CHIEF LIBRARIAN BRANCH, ACID ADJUSTER.
--- NOTE | 2019-09-15 18:29 | NURSING ---
Dorie key worker called in, states she talked with Dianne Katz and talked with [facility]. states pt is no longer pink slipped but Leticia from [facility] is on her way in to talk with patient to try to get her into an inpatient facility. primary RN updated.
--- NOTE | 2019-09-15 20:12 | NURSING ---
Clearing Supervisor from [facility] says pt has an appointment on Tuesday. Went back to pts room does not need sitter. Pt states Feels much better after talking with the [facility] risk control representative.
[2019-09-15] MEDS: Calcium Carbonate 500 MG Tablet PO (22:08)
[2019-09-16 02:05] VITALS: BP 95/64; PULSE 63; RESP 14; TEMP 36.9; O2SAT 100
[2019-09-16 07:10] VITALS: O2SAT 98
[2019-09-16 08:05] VITALS: BP 100/61; PULSE 65; RESP 18; TEMP 36.7; O2SAT 99
--- NOTE | 2019-09-16 10:05 | DCINST_ITS ---
- Discharge Diagnoses Current Active Problems: Current Active and Chronic Problems Opiate withdrawal (Acute) Suicidal ideations (Acute) Homicidal ideations (Acute) Anxiety and depression (Chronic) Bipolar disorder (Chronic) Tobacco use (Chronic) You will use the following diet at home:: No restrictions Discharge Activity: Return to Normal Activity Allergies/Adverse Reactions: Allergies clindamycin Adverse Reaction (Verified 09/13/19 22:17) Vomiting red meats Allergy (Uncoded 09/13/19 22:17) Food Allergy Medications to take at Discharge Eye Antibiotic 09/14/19 Primary Care Physician: Care Physician,No Primary [Primary Care Provider] - Please follow up with your Primary Care Physician in: As needed Test Results: Test results from this visit will be discussed in further detail at your follow- up appointment, if applicable. Please Follow Up With: KALI,ONE When: As scheduled 09/17/2019 a.m. Proposed Discharge Date: 09/16/19
--- NOTE | 2019-09-16 10:06 | PCM.DC.SUM ---
<Dianne Katz - Last Filed: 09/16/19 10:19> Discharge Date and Diagnosis Date of Admission: 09/14/19 Date of Discharge: 09/16/19 - Primary Discharge Diagnosis Active and Suspected Problems 1. Acute opioid withdrawal 2. Suicidal and homicidal ideations with history of anxiety, depression, bipolar disorder 3. Polysubstance abuse 4. Tobacco dependence - Secondary Discharge Diagnosis Chronic Problems Anxiety and depression (Chronic) Bipolar disorder (Chronic) Tobacco use (Chronic) Hospital Course and Treatment Consultations 09/14/19 23:55 Consult: Mental Health/Crisis Routine Reason for consult?: Suicidal and homicidal ideations, waiting bed at [place], treating current for opiate withdrawal Date Notified:: 09/15/19 Time notified:: 12:23 Operations: None Procedures: None Summary of Care Provided: The patient is a 29 year old F admitted 09/14/2019 due to heroin withdrawal, recent suicidal ideation presentation. 1. Acute opioid withdrawal-medical stabilization per protocol. Patient initiated on Subutex taper which she felt was making her feel worse. Patient states she had not used opioids in approximately 10 days prior to presentation and did not feel she was going through withdrawal. Patient did not display withdrawal symptoms day of discharge and Subutex taper discontinued. Patient discharged home in stable condition with follow-up for inpatient treatment tomorrow morning. 2. Suicidal and homicidal ideations with history of anxiety, depression, bipolar disorder-initially planned for inpatient treatment at [facility] however [facility] declined patient, stating patient is not currently suicidal or homicidal. Patient's pink slip was removed. [facility] energy conservation representative from local treatment facility spoke with patient about residential treatment at discharge. All parties agreeable to discharge home and patient will follow-up with [facility] 09/17/2019 morning for inpatient treatment. Patient states she has history of one other episode of suicidal ideations which was also associated with methamphetamine use. At discharge patient is calm, speaking appropriately and denies any suicidal or homicidal ideations. Patient reports she is currently living with her parents who are both very supportive of her getting treatment for substance abuse and have taken away her car and other means necessary for her to use substances. Crisis involved during admission, given no further suicidal or homicidal ideations, stable for discharge home with follow-up on Tuesday morning as noted previously. 3. Polysubstance abuse-tox screen positive for amphetamines. Hep panel pending. 4. Tobacco dependence-encourage cessation. General: Alert, Oriented x3, Cooperative HEENT: Atraumatic, PERRLA, EOMI, Normocephalic Oral: - - Poor dentition Neck: Supple, No JVD, Negative Carotid Bruits Lungs: Clear to auscultation, Normal air movement Cardiovascular: Regular rate, Regular Rhythm, Normal S1, Normal S2, No murmurs Abdomen: Bowel Sounds Present, Soft, Non Tender, Non-Distended Extremities: No clubbing, No cyanosis, No edema, Capillary Refill Less than 3 Seconds Skin: No rashes, No breakdown Musculoskeletal: No Tenderness to Palpation of Joints or Extremities Neurological: Cranial nerves II-XII grossly intact, Neuro grossly intact Psych/Mental Status: Appropriate Patient seen and examined prior to discharge. Physical assessment as noted above. Patient is stable for discharge with follow up recommendations as noted above. This patient was seen by YAAKOV Cuevas under the supervision of Dr. Canales. - Physical Exam Vitals/I&O's: Vital Signs Temp Pulse Resp BP Pulse Ox 98.4 F 63 14 95/64 98 09/16/19 02:05 09/16/19 02:05 09/16/19 02:05 09/16/19 02:05 09/16/19 07:10 Oxygen Delivery Method Room Air Weight: 155 lb 10.342 oz Body Mass Index (BMI) 25.1 Intake and Output for Last 24 Hours 09/14/19 09/15/19 09/16/19 23:59 23:59 23:59 Intake Total 1170.83 / 1170.83 Output Total 0 / 0 Balance 1170.83 / 1170.83 Current Medications Acetaminophen (Tylenol) 500 mg PO Q4H PRN PRN PRN Reason: Temp > 100.4 F Al Hydroxide/Mg Hydroxide (Mylanta Ii) 30 ml PO Q4H PRN PRN PRN Reason: DYSPEPSIA Bisacodyl (Dulcolax) 10 mg RECTAL DAILY PRN PRN PRN Reason: Constipation Buprenorphine HCl (Buprenorphine Hcl) 2 mg SL Q8H CLEMENTE; Taper Stop: 09/18/19 04:19 Last Admin: 09/15/19 23:49 Dose: Not Given Documented by: Calcium Carbonate (Tums) 500 mg PO Q4H PRN PRN PRN Reason: heart burn Last Admin: 09/15/19 22:08 Dose: 500 mg Documented by: Clonidine (Catapres) 0.1 mg PO Q2H PRN PRN PRN Reason: Hot/Cold Sweats or Anxiety Dicyclomine HCl (Bentyl) 20 mg PO Q6H PRN PRN PRN Reason: Abdomnial Discomfort Glucagon () 1 mg IM .X1 PRN PRN Reason: Hypoglycemia Hydroxyzine HCl (Vistaril Vial) 50 mg IM Q6H PRN PRN PRN Reason: Breakthrough Anxiety Hydroxyzine Pamoate (Vistaril Pamoate Capsule) 50 mg PO Q6H PRN PRN PRN Reason: Mild Anxiety Dextrose (Dextrose 10%-Water) 250 mls @ 999 mls/hr IV .Q16M PRN; Protocol PRN Reason: HYPOGLYCEMIA Ibuprofen (Motrin) 600 mg PO Q8H PRN PRN PRN Reason: Pain Score 1-5/10 Loperamide HCl (Imodium) 2 - 4 mg PO UD PRN PRN Reason: LOOSE STOOLS Methocarbamol (Methocarbamol) 750 mg PO Q6H PRN PRN PRN Reason: Muscle Aches Nicotine (Nicoderm Cq (Pbkc)) 21 mg TRANSDERM. DAILY [facility] Last Admin: 09/15/19 08:49 Dose: 21 mg Documented by: Nicotine Polacrilex (Rugby Nicotine (Bkc)) 2 mg PO Q4H PRN PRN PRN Reason: Nicotine Craving Nicotine Polacrilex (Rugby Nicotine (Bkc)) 2 mg PO Q2H PRN PRN PRN Reason: Nicotine Craving Nutritional Formula (Lactose Free) (Ensure Enlive) 120 ml PO 4X/DAY [facility] Last Admin: 09/15/19 22:02 Dose: Not Given Documented by: Ondansetron HCl (Zofran Odt) 4 mg PO Q6H PRN PRN PRN Reason: NAUSEA Last Admin: 09/15/19 14:08 Dose: 4 mg Documented by: Pramipexole Dihydrochloride (Mirapex) 0.25 mg PO Q12H PRN PRN PRN Reason: Restless Legs Senna (Senokot) 1 tablet PO QHS PRN PRN PRN Reason: Constipation Sodium Chloride () 10 - 40 ml IV UD PRN PRN Reason: SALINE FLUSH Throat Lozenges (Cepacol Sore Throat Lozenge) 1 lozenge MUCOUS MEM Q2H PRN PRN PRN Reason: SORE THROAT Trazodone HCl (Desyrel) 50 mg PO QHS [facility] Last Admin: 09/15/19 22:02 Dose: Not Given Documented by: Discharge Diet: No Restrictions Discharge Activity: Return to Normal Activity Home Medications: Medications to take at Discharge Eye Antibiotic 09/14/19 Primary Care Physician: Care Physician,No Primary [Primary Care Provider] - Please follow up with your Primary Care Physician in: As needed Please Follow Up With: EIGHTY,ONE When: As scheduled 09/17/2019 a.m. Disposition: Home Minutes spent on discharge:: 35 Patient Condition:: Stable Medical Necessity - Tobacco Use Smoking Status: Current every day smoker Tobacco Use: Cigarettes Meaningful Use Info Meaningful Use Diagnoses (Choose all that apply): None applicable <Nick Canales - Last Filed: 09/16/19 13:26> Discharge Date and Diagnosis - Secondary Discharge Diagnosis Chronic Problems Anxiety and depression (Chronic) Bipolar disorder (Chronic) Tobacco use (Chronic) Hospital Course and Treatment Consultations 09/14/19 23:55 Consult: Mental Health/Crisis Routine Reason for consult?: Suicidal and homicidal ideations, waiting bed at [place], treating current for opiate withdrawal Date Notified:: 09/15/19 Time notified:: 12:23 Summary of Care Provided: This patient was seen in conjunction with BLOCK BOLTER MULE OPERATOR, Dianne. I have independently interviewed and examined the patient and reviewed pertinent history, examination findings, laboratory and plan of management. I have reviewed the note and agree with the documented findings with the few additional points. In brief, patient is admitted for acute opioid withdrawal. Patient not compliant to the hospital medications and is refusing the dosing schedule of Subutex. I tried to convince her to follow the medication regimen and timing. U tox is positive for amphetamine. Hepatitis and HIV panel pending. Earlier, there is plan for discharge to inpatient rehab but [facility] declined as patient is not suicidal or homicidal. [place] slip was moved. Patient has history of suicidal ideation/thoughts in the past when she had methamphetamine inhalation. Currently she declines deceleration or attempt. She is alert, oriented x3, coherent speech. She is discharged home. She has follow-up with 180 tomorrow a.m. for inpatient drug rehab. I have discussed my assessment with BLOCK BOLTER MULE OPERATORDianne and orders have been reviewed. Discharge medication reconciliation done. Discharge follow-up instructions completed. Discharge process discussed with the patient and all questions were answered to patient's satisfaction. Total time spent, exact 35 minutes on discharge meds reconciliation, examination, coordination of care with nurses and ancillary staff, review of imaging and blood test and discussion with the patient on follow-up instructions [] Objective: General: Alert, Oriented x3, Cooperative HEENT: Atraumatic, PERRLA, EOMI, Normocephalic Oral: Small nodule visible posterior to right upper third molar gum, probably related to chronic edematous changes from crystal meth inhalation/drug abuse. Missing teeth. Neck: Supple, No JVD, Negative Carotid Bruits Lungs: Clear to auscultation, Normal air movement, No rhonchi, No wheeze, No rales Cardiovascular: Regular rate, No murmurs Abdomen: Bowel Sounds Present, Soft, Non Tender, No Hepato-splenomegaly Extremities: No edema, Capillary Refill Less than 3 Seconds Skin: No rashes, No breakdown Musculoskeletal: No Tenderness to Palpation of Joints or Extremities Neurological: Cranial nerves II-XII grossly intact, Deep Tendon Reflexes 2+/4 and Symmetrical, Neuro grossly intact Psych/Mental Status: Normal Affect, Appropriate - Physical Exam Vitals/I&O's: Vital Signs Temp Pulse Resp BP Pulse Ox 98.0 F 65 18 100/61 99 09/16/19 08:05 09/16/19 08:05 09/16/19 08:05 09/16/19 08:05 09/16/19 08:05 Oxygen Delivery Method Room Air Weight: 155 lb 10.342 oz Body Mass Index (BMI) 25.1 Intake and Output for Last 24 Hours 09/14/19 09/15/19 09/16/19 23:59 23:59 23:59 Intake Total 1170.83 / 1170.83 Output Total 0 / 0 Balance 1170.83 / 1170.83 Code Visit Inpatient E&M: 27136 Disch Hosp
--- NOTE | 2019-09-16 10:57 | NURSING ---
PT REFUSED ALL MEDS THIS AM, DENIES NEEDS FR HARRISN
[2019-09-16 14:06] LABS: HEPATITIS B SURFACE AG Negative (Negative); Hepatitis A AB, Total Negative (Negative); Hepatitis A IgM Antibody Negative (Negative); Hepatitis B Core AB IgM Negative (Negative); Hepatitis B Core Ab Total Negative (Negative); Hepatitis C Ab <0.1 s/co ratio (0.0-0.9)
[2019-09-17 09:44] LABS: HIV - WCH Non-Reactive (Nonreactive)
[2019-09-17 11:55] LABS: Hep B Surface Antibodies Non Reactive (.)
--- NOTE | 2019-09-24 17:13 | NURSING ---
late entry: Sep 15. this nurse took care of pt, and she c/o that breakfast tray was picked up before she had a chance to eat. Tray was at bedside for over 1.5 hours, and a few minutes after it was picked up she complained that she didn't get breakfast. Nurse offered to call and order breakfast for her but she declined the offer.
== END 2019-09-16 11:18 | disposition home or self-care (01) | DRG 897 ==
LOC: ED 23:28 → MS3 09-14 22:30
PROVIDERS: Admitting Provider Family Medicine; Emergency Provider Emergency Medicine; Visit Provider Internal Medicine
DX: F11.23 Opioid dependence with withdrawal (principal); R45.851 Suicidal ideations; R45.850 Homicidal ideations; F31.9 Bipolar disorder, unspecified; F41.9 Anxiety disorder, unspecified; F15.10 Other stimulant abuse, uncomplicated; F17.210 Nicotine dependence, cigarettes, uncomplicated
CPT/HCPCS: 80053; 80307; 80320; 82550; 84443; 84703; 85025; 86703; 86704; 86705; 86706; 86708; 86709; 86803; 87340; 93005; 96372; 97802; 99251; 99285; 99406; J7120; G0463; G0480; J3486

== ENCOUNTER 2019-09-30 20:41 | Emergency (ER) | payer MEDICAID, SELFPAY ==
[2019-09-14 23:29] VITALS: BMI 25.1
[2019-09-30 20:41] VITALS: BP 130/91; PULSE 120; RESP 15; TEMP 36.7; O2SAT 97; BMI 23.3
--- NOTE | 2019-09-30 21:25 | ED.RN ---
PER DR. ASHLEY SAMPSON FOR NO SITTER. ORDER PLACED
--- NOTE | 2019-09-30 22:04 | ED.RN ---
dR RAMIREZ TOLD PATIENT IF SHE CAN GET A RIDE HOME SHE IS ABLE TO BE RELEASED. PT WORKING ON PHONE TRYING TO GET RIDE.
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
--- NOTE | 2019-10-01 07:39 | ED.RN ---
PT ATTEMPTING TO FIND RIDE TO GET HOME OR TO SAFE PLACE TO STAY. PT STATES THAT SHE HAS NO SUPPORTIVE FAMILY OR FRIENDS NEARBY AND NO ONE WILLING TO HELP HER. PT DC TO WAITING ROOM TO WAIT FOR SOCIAL WORK. PT GIVEN FOOD WHILE WAITING FOR SOCIAL WORK REFERRAL. PT DENIES FURTHER NEEDS AT THIS TIME, PT FEELS SAFE WAITING IN WAITING ROOM.
--- NOTE | 2019-10-01 12:35 | CM.ED ---
SOCIAL WORK MET WITH PATIENT IN WAITING ROOM. PATIENT LOS DOES NOT HAVE TRANSPORTATION OR A PLACE TO STAY. PATIENT STATES FAMILY WILL NOT ASSIST D/T FAMILY WANTING PATIENT TO COMPLETE INPATIENT REHAB FOR SUBSTANCE ABUSE. PATIENT HAS A FRIEND IN [place], [place] THAT SHE COULD STAY WITH, BUT FRIEND DOES NOT HAVE A CAR AND PATIENT DOES NOT HAVE MONEY FOR BUS TICKET. DISCUSSED ALL OPTIONS WITH PATIENT. PATIENT LOS WAS IN TREATMENT AT THE [facility], BUT LEFT D/T NOT ATTENDING GROUPS. PATIENT PLANS TO CALL [facility] AT THIS TIME TO DISCUSS OPTIONS. PATIENT DOES NOT WISH TO GO TO THE HOMELESS INTERMEDIATE BECAUSE A CAROL ANN I KNOW IS THERE AND HE DOES NOT HAVE GOOD INTENTIONS. THIS WORKER TO FOLLOW UP WITH PATIENT AFTER [facility] IS CONTACTED. Josefa BARROS MSW, DEPARTMENT OF NATURAL RESOURCES OFFICER.
--- NOTE | 2019-10-01 13:30 | CM.ED ---
SOCIAL WORK PATIENT REPORTS CALLED [facility] AND WAS INFORMED THEY ARE UNABLE TO ASSIST FOR 30 DAYS BECAUSE PATIENT LEFT TREATMENT. DISCUSSED [facility]IT SCHEDULE WITH PATIENT. O MUÑOZ UPDATE ON PATIENT'S STATUS. Josefa BARROS MSW, CORNER [employer]ACE BLOCK MACHINE OPERATOR.
== END 2019-10-01 07:44 | disposition home or self-care (01) ==
PROVIDERS: Emergency Provider Emergency Medicine
DX: F32.9 Major depressive disorder, single episode, unspecified (principal); F11.10 Opioid abuse, uncomplicated; F15.10 Other stimulant abuse, uncomplicated; Z72.0 Tobacco use
CPT/HCPCS: 36415; 99283

== ENCOUNTER 2019-10-15 08:10 | Emergency (ER) | payer MEDICAID, SELFPAY ==
[2019-10-15 08:10] VITALS: BP 106/66; PULSE 92; RESP 17; TEMP 37.1; O2SAT 96; BMI 26.5
--- NOTE | 2019-10-15 08:12 | RAD_ITS ---
STUDY: X-RAY CHEST REASON FOR EXAM: Female, 29 years old. Cough, congestion, fever x 1 wk TECHNIQUE: PA and lateral views of the chest. COMPARISON: None. FINDINGS: The lungs are clear and expanded. There is no demonstrated pleural abnormality. Normal size heart. Normal mediastinum and christine. Normal visualized pulmonary arteries. Normal visualized aortic arch and descending thoracic aorta. Normal visualized thoracic spine. Normal visualized ribs, clavicles, and shoulders. There is no demonstrated abnormality of the visualized soft tissue structures of the upper abdomen. RAD/Chest PA and Lateral IMPRESSION: Normal x-ray examination of the chest. Electronically Signed: Jan Bhardwaj, at 8:52 EDT , Service support ,
[2019-10-15 08:14] VITALS: O2SAT 96
--- NOTE | 2019-10-15 08:14 | ED.VIS.GEN ---
History of Present Illness Chief Complaint: Cough Detail of Chief Complaint: Fever, cough for approximately 1 week and dental pain Onset: Weeks Context: Sudden Onset Timing: Continuous - Pain Location: Right jaw Current Severity: Mild Maximum Severity: Moderate Worsened by: Air, cold Relieved by: Nothing Associated Symptoms: Upper respiratory symptoms with fever and myalgias Narrative: Patient is a 29-year-old woman who is a smoker and [facility] with chief complaint of fever, chills, congestion and cough. She states she has not had a cigarette today. She states she does not feel well. She also complains of jaw pain on the right side. She does complain of headache. She denies photophobia, change in vision, neck pain or neck stiffness. She has report mild sore throat. She does report shortness of breath. Cough is essentially nonproductive. She denies chest discomfort. She denies GI symptoms. She denies urologic symptoms. She does complain of aching all over. She reports dental pain for the past several days. Ear makes the pain worse as well as cold. She does not have a dentist. She reports allergy to clindamycin. There is no history of medic fever, SBE, IV drug use or being immune suppressed. She states there are numerous people that are ill at the [facility]. Prior similar symptoms: No Recent Illness/Hospitalization: No - Past Medical History (1) Opiate withdrawal Status: Suspected (2) Anxiety and depression Status: Chronic (3) Tobacco use Status: Chronic Past Medical History - Allergies and Home Meds Allergies/Adverse Reactions: Allergies clindamycin Adverse Reaction (Verified 10/15/19 08:17) Vomiting red meats Allergy (Uncoded 10/15/19 08:17) Food Allergy Primary Care Physician: Care Physician,No Primary [Primary Care Provider] - Prior records reviewed: Yes Surgical History: - - Oral surgery, left knee arthroscopic surgery. Lives: Alone, Homeless Smoking Status: Current every day smoker Alcohol: None Drugs: None - Family History Maternal Family History: Reports: - - Patient notes a maternal family history of heart disease. Paternal Family History: Reports: - - Patient notes paternal family history of prostate cancer. Review of Systems General: Reports: Chills, Fever, Malaise. Denies: Subjective, Sweats, Weight loss Eyes: Denies: Visual changes - bilaterally, Blurred Vision - bilaterally ENT: Reports: Rhinorrhea, Sore throat. Denies: Bilateral ear pain Cardiovascular: Denies: Chest pain, Palpitations Respiratory: Reports: Dyspnea, Cough, Dyspnea on exertion. Denies: Sputum, Orthopnea, Paroxysmal nocturnal dyspnea Gastrointestinal: Denies: Abdominal pain, Nausea, Vomiting, Diarrhea, Melena, Hematochezia Genitourinary: Denies: Dysuria, Hematuria, Frequency Musculoskeletal: Reports: Myalgias. Denies: Neck pain, Back pain, Swelling, Extremity Pain Skin: Denies: Rash, Wounds Neurological: Denies: Headache, Weakness, Parasthesia Hematologic: Denies: Easy bruising, Easy bleeding Physical Exam Vital Signs/Narrative: Vital Signs Temp Pulse Resp BP Pulse Ox 10/15/19 08:10 98.7 F 92 17 106/66 96 Inital Vital Signs reviewed: Yes - Patient is breathing much more rapidly than 17 times a minute. General: Well nourished, Well developed, - - Patient is tachypneic Head: Normocephalic, Atraumatic Eyes: Perrl, EOMI. Negative for: Pale conjunctiva, Scleral icterus ENT: Moist mucous membranes, TM's clear, Nasal congestion, - - Is no trips patient does have dental caries with exposure of dentin and pulp involving multiple right lower teeth.. Negative for: No rhinorrhea, Dry mucous membranes, Sinus tenderness Neck: Supple, Nontender, No lymphadenopathy, No JVD, - - Trachea is midline. There is no inspiratory expiratory stridor. Cardiovascular: Regular rate, Regular rhythm, No murmurs, Normal S1, Normal S2 Respiratory: CTA bilaterally, Chest nontender. Negative for: No distress Abdomen: Soft, Nontender, Nondistended, Normal bowel sounds Rectal: Deferred Back: Nontender, Normal Inspection Extremities: Nontender, No edema Skin: Normal color, No rash, No Trauma. Negative for: Cyanosis, Diaphoresis, Jaundice Neurological: Alert, Oriented x3, Cranial nerves II-XII grossly intact, Normal Strength, Normal Sensation Psychological: Normal affect, Normal Mood Diagnostic/Tx/Re-eval Chest X-Ray - ED: 2 View, Read by ED Physician, Normal, Heart, Lungs, Mediastinum, Bony Structures, No Acute Disease, - - X-ray was interpreted by me at 0851 Impressions Chest X-Ray 10/15/19 08:12 IMPRESSION: Normal x-ray examination of the chest. Electronically Signed: Jan Bhardwaj, at 8:52 EDT , Service support , 10/15/19 08:12 Chest PA and Lateral [RAD] Stat 10/15/19 08:18 Mucosa - Nasopharyngeal Influenza Types A,B Direct FA ([facility]) - Final - Medical Decision Making With complaint of respiratory symptoms with fever chills and myalgias will obtain influenza screen. Chest x-ray was obtained because she is tachypneic. She was treated with amoxicillin and anti-inflammatory to treat her dental pain/infection. Differential diagnosis includes viral infection (influenza, versus any other viral infection), pneumonia. Chest x-ray was unremarkable. Influenza was negative. Will treat with amoxicillin for dental infection and appropriate home-going structures for viral illness. ED Disposition - Plan for ED Patient: Disposition: Home or Assisted Living Diagnosis: Upper respiratory infection with cough and congestion, Fever, Dental caries extending into dentine Instructions: BRONCHITIS, No Antibiotic (Adult), Dental Cavity Prescriptions: Amoxicillin 500 mg PO TID #20 tab Transmission Status: Pending to [facility] Naproxen [Naprosyn] 500 mg PO BID #14 tab Transmission Status: Pending to [facility] Referrals: Care Physician,No Primary [Primary Care Provider] - Dee Bond [NON-STAFF] - 5-7 Days
[2019-10-15 08:26] VITALS: BP 106/66; PULSE 92; RESP 17; TEMP 37.1; O2SAT 96
[2019-10-15] MEDS: Ibuprofen 600 MG Tablet PO (09:11)
[2019-10-15] MEDS: AMOXICILLIN 500 MG CAPSULE PO (09:11)
[2019-10-15 09:12] VITALS: BP 129/77; PULSE 62; RESP 15; O2SAT 98
== END 2019-10-15 09:13 | disposition home or self-care (01) ==
LOC: ED 09:02
PROVIDERS: Emergency Provider Emergency Medicine
DX: J06.9 Acute upper respiratory infection, unspecified (principal); K02.62 Dental caries on smooth surface penetrating into dentin; R06.82 Tachypnea, not elsewhere classified; F17.210 Nicotine dependence, cigarettes, uncomplicated; Z59.0 Homelessness
CPT/HCPCS: 71046; 87804; 99285

== ENCOUNTER 2019-10-30 00:14 | Emergency (ER) | payer MEDICAID, SELFPAY ==
[2019-10-30 00:16] VITALS: BP 110/80; PULSE 98; RESP 18; TEMP 36.8; O2SAT 100; BMI 27.1
[2019-10-30] MEDS: Acetaminophen 650 MG/20 ML UDC PO (00:41)
[2019-10-30] MEDS: hydrOXYzine 50 MG/ML Vial IM (00:41)
--- NOTE | 2019-10-30 00:49 | ED.DCSUM_ITS ---
- ER Visit Summary Date of Service: 10/30/19 Chief Complaint: Mental breakdown History of Present Illness: The patient is a 29 F with no primary care physician. She does report a history of depression. She states that she has been living at the [facility]. Today was her daughter's birthday and she has not seen her for 3 years. States that because of that she is very upset today. She also reports that her best friend overdosed approximately 13 months ago when she is having a hard time recovering from that. She denies any suicidal or homicidal ideation. She denies auditory hallucinations. Patient reports that she has been on Effexor and Vistaril in the past, but is not on those now. She does report that she has problems with heroin and methamphetamine. She snorts both of these. She denies any IV drug abuse. She states her last use of heroin was a couple of days ago. Her last use of methamphetamine was yesterday. She is currently living at the [facility]. Physical Examination: Vitals: Stable. Afebrile. General: Well-nourished and well-developed. Head: Normocephalic atraumatic. Neck: Supple, no lymphadenopathy. No JVD. Nontender. Cardiovascular: Regular rate and rhythm. No murmurs. Respiratory: No respiratory distress. Clear to auscultation bilaterally. Abdominal: Soft, nontender, nondistended, normal bowel sounds. No guarding, rebound, or peritoneal signs. Back: Nontender. Extremities: Nontender, no edema. Skin: Normal color, no rash. Neurologic: Alert and oriented ?3. Cranial nerves II through XII are intact. Normal strength and sensation. Mental status exam: Patient appears their stated age. Good posture and grooming. Good eye contact. Normal rate, volume, and latency of speech. No suicidal or homicidal ideation. No auditory or visual hallucinations. Flow of thought is logical. Insight and judgment is fair. Emergency Department Course and Treatment: Patient does not meet criteria for hospitalization. She is having no suicidal homicidal ideation. She was given a dose of Tylenol p.o. and Vistaril IM. Treatment Plan: Patient was discussed with the counseling center. They will call and check on her tomorrow. She is instructed to follow-up with them and 180 as soon as possible. She will be given prescriptions for Vistaril and Effexor XR. Return to the emergency department for any worsening symptoms. Disposition: To home in improved and stable condition. Impression: 1. Depression. 2. Polysubstance abuse. This note was generated with [employer] software. It may contain incorrect words, spelling, and punctuation that were not noted in review of the chart prior to signing ED Disposition - Plan for ED Patient: Instructions: ED Depression Prescriptions: Venlafaxine HCl [Effexor Xr] 75 mg PO DAILY #30 cap.er.24h Prescription Printed Hydroxyzine Pamoate [Vistaril] 50 mg PO TID PRN PRN #20 cap PRN Reason: Anxiety Prescription Printed Referrals: Counseling,Center [GROUP OF PHYSICIANS] - As soon as possible [facility] [STAFF PHYSICIAN] - As soon as possible
== END 2019-10-30 01:30 | disposition home or self-care (01) ==
PROVIDERS: Emergency Provider Emergency Medicine
DX: F32.9 Major depressive disorder, single episode, unspecified (principal); F41.9 Anxiety disorder, unspecified; F11.10 Opioid abuse, uncomplicated; F15.10 Other stimulant abuse, uncomplicated; Z72.0 Tobacco use
CPT/HCPCS: 96372; 99284

== ENCOUNTER → 2020-02-04 11:59 | Outpatient (CLI) | payer MEDICAID, SELFPAY ==
[2020-02-04 12:41] LABS: Absolute Lymphocyte Count 2.25 X10^3/uL (0.83-4.51); Absolute Neutrophil Count 6.7 X10^3/uL (2.0-7.7); Basophil# 0.05 X10^3/uL; Basophil% 0.5 % (0-1); Eosinophil# 0.36 X10^3/uL; Eosinophils% 3.6 % (0-5); Hematocrit 38.1 % (37-47); Hemoglobin 12.7 g/dL (12.0-15.0); Lymphocyte # 2.25 X10^3/ul (4.0); Lymphocyte % 22.8 % (19-41); Mean Corp Hgb Conc 33.3 g/dL (32-36); Mean Corpuscular Hgb 31.9 pg (27.0-32.0); Mean Corpuscular Volume 95.7 fL (81-99); Mean Platelet Vol. 9.4 fl (6.2-12.0); Monocyte# 0.53 X10^3/uL; Monocyte% 5.4 % (0-10); NRBC Flagged by Analyzer 0 % (0-5); Neutrophil # 6.65 X10^3/uL (2.7-7.7); Neutrophil % 67.4 % (47-70); Platelet Count 292 K/mm3 (150-450); RBC Distribution Width CV 12.7 % (11.6-14.6); Red Blood Count 3.98 M/mm3 (4.2-5.4); White Blood Count 9.9 K/mm3 (4.4-11.0)
[2020-02-04 12:50] LABS: Color, Urine Yellow (Yellow); Glucose, Dipstick Normal (Normal); Ketone-Dipstick Negative (Negative); Leukocyte Esterase-Dipstick Negative /ul (Negative); Nitrite-Dipstick Negative (Negative); Occult Blood-Urine Negative /ul (Negative); Protein-Dipstick Negative (Negative); Specific Gravity, Urine 1.015 (1.002-1.030); Urine Bilirubin Dipstick Negative (Negative); Urine Clarity Sl. Cloudy (Clear); Urine Urobilinogen Normal (Normal)
[2020-02-04 13:30] LABS: Amphetamine Urine VISTA NEGATIVE (<1000 ng/mL); Barbiturate Urine VISTA NEGATIVE (< 200 ng/mL); Benzodiazepine Urine VISTA NEGATIVE (< 200 ng/mL); Cocaine Urine VISTA NEGATIVE (< 300 ng/mL); Ecstacy Urine VISTA NEGATIVE (< 500 ng/mL); Methadone Urine VISTA NEGATIVE (< 300 ng/mL); PCP Urine VISTA NEGATIVE (< 25 ng/mL); THC Urine VISTA NEGATIVE (< 50 ng/mL); Vista UDS pH Range 6
[2020-02-04 13:54] LABS: Thyroid Stim Hormone (TSH) 0.93 uIU/mL (0.358-3.74)
[2020-02-04 13:59] LABS: HIV - WCH Non-Reactive (Nonreactive); Hepatitis B Surface Antigen Non-Reactive (Nonreactive); Hepatitis C Antibody Non-Reactive (Nonreactive)
[2020-02-04 15:57] LABS: Probe Check PASS; Sample Adequacy Control PASS; Specimen Processing Control PASS; Trichomonas Vag DNA by PCR Negative (Negative)
[2020-02-04 16:14] LABS: Chlamydia Trachomatis by PCR Negative (Negative); Neisserai gonorrhoeae by PCR Negative (Negative); Probe Check PASS; Sample Adequacy Control PASS; Specimen Processing Control PASS
[2020-02-07 01:39] LABS: Prenatal RPR NONREACTIVE (NONREACTIVE)
== END ==
PROVIDERS: Visit Provider Obstetrics & Gynecology
DX: Z34.82 Encounter for supervision of other normal pregnancy, second trimester (principal); Z11.3 Encounter for screening for infections with a predominantly sexual mode of transmission
CPT/HCPCS: 36415; 80307; 81002; 84443; 85025; 86703; 86762; 86803; 87340; 87491; 87591; 87661

== ENCOUNTER → 2020-04-29 10:10 | Outpatient (CLI) | payer MEDICAID, SELFPAY ==
[2020-04-29 11:17] LABS: Glucose Challenge Gest 1H 50g 85 mg/dL (70-140); Hematocrit 34.7 % (37-47); Hemoglobin 11.4 g/dL (12.0-15.0); Mean Corp Hgb Conc 32.9 g/dL (32-36); Mean Corpuscular Hgb 30.9 pg (27.0-32.0); Platelet Count 320 K/mm3 (150-450); Red Blood Count 3.69 M/mm3 (4.2-5.4); White Blood Count 9.8 K/mm3 (4.4-11.0)
== END ==
PROVIDERS: Visit Provider Obstetrics & Gynecology
DX: Z34.83 Encounter for supervision of other normal pregnancy, third trimester (principal)
CPT/HCPCS: 36415; 82950; 85027

== ENCOUNTER → 2020-07-07 | Outpatient (CLI) | payer MEDICAID, SELFPAY | END | disposition home or self-care (01) | PROVIDERS: Referring Provider Obstetrics & Gynecology; Visit Provider Obstetrics & Gynecology | DX: Z36.85 Encounter for antenatal screening for Streptococcus B (principal) | CPT/HCPCS: 87077; 87081; 87186 ==

== ENCOUNTER 2020-07-25 01:50 | Outpatient (CLI) | payer MEDICAID, SELFPAY ==
[2020-07-25 13:59] VITALS: BP 128/78; PULSE 101; TEMP 36.7; O2SAT 96
[2020-07-25 14:23] VITALS: BMI 40.3
[2020-07-25 19:18] VITALS: BP 149/68; PULSE 92
--- NOTE | 2020-07-26 09:39 | OB.TRI.NOTE ---
History of Present Illness Date of Service: 07/25/20 Was patient seen by the physician?: No Reason For Visit: NST Final ITZEL: 07/19/20 Gestational age: 40 Weeks and 6 Days History of Present Illness: 29up @ 40 6/7 w[facility] presents for scheduled NST Allergies clindamycin Adverse Reaction (Verified 10/30/19 00:19) Vomiting red meats Allergy (Uncoded 10/30/19 00:19) Food Allergy Physical Exam Vitals: Vital Signs Temp Pulse BP Pulse Ox 98.0 F 92 149/68 H 96 07/25/20 13:59 07/25/20 19:18 07/25/20 19:18 07/25/20 13:59 NST - FHR Rate Baby A Baseline: 125 Variability:: Moderate Accelerations:: 15 x 15 Decelerations:: None NST Reactive:: Yes FHR Category:: Category I Uterine Activity:: 2/10 Impression/Plan Reactive NST, Cat I FHR -d/c home with movement counts
== END 2020-07-25 14:55 | disposition home or self-care (01) ==
LOC: WPOUT 13:58
PROVIDERS: Referring Provider Obstetrics & Gynecology; Visit Provider Obstetrics & Gynecology
DX: Z34.83 Encounter for supervision of other normal pregnancy, third trimester (principal)
CPT/HCPCS: 59025; 59050; 99218; G0378

== ENCOUNTER 2020-07-31 07:00 | Inpatient (IN) | payer MEDICAID, SELFPAY ==
[2020-07-31] VITALS (37 sets, daily range): BP systolic 105–152; BP diastolic 56–87; PULSE 87–122; RESP 16; TEMP 36.1–37; O2SAT 92–100; BMI 40.8
[2020-07-31] MEDS: Lactated Ringers 1,000 ML 50 ML IV (07:30)
[2020-07-31 07:41] LABS: Absolute Lymphocyte Count 2.42 X10^3/uL (0.83-4.51); Absolute Neutrophil Count 6.6 X10^3/uL (2.0-7.7); Basophil# 0.04 X10^3/uL; Basophil% 0.4 % (0-1); Eosinophil# 0.62 X10^3/uL; Hematocrit 30.3 % (37-47); Hemoglobin 9.8 g/dL (12.0-15.0); Lymphocyte # 2.42 X10^3/ul (4.0); Lymphocyte % 23.6 % (19-41); Mean Corp Hgb Conc 32.3 g/dL (32-36); Mean Corpuscular Hgb 28.4 pg (27.0-32.0); Mean Corpuscular Volume 87.8 fL (81-99); Mean Platelet Vol. 10.2 fl (6.2-12.0); Monocyte# 0.56 X10^3/uL; Monocyte% 5.5 % (0-10); NRBC Flagged by Analyzer 0 % (0-5); Neutrophil # 6.57 X10^3/uL (2.7-7.7); Platelet Count 307 K/mm3 (150-450); RBC Distribution Width CV 14.5 % (11.6-14.6); RBC Distribution Width SD 46.1 fl (35.1-43.9); Red Blood Count 3.45 M/mm3 (4.2-5.4); White Blood Count 10.3 K/mm3 (4.4-11.0)
[2020-07-31] MEDS: Oxytocin 30 units/NS 500 ml 30 UNITS/500 ML IV.SOLN IV (08:34)
[2020-07-31 09:25] LABS: Amphetamine Urine VISTA NEGATIVE (<1000 ng/mL); Barbiturate Urine VISTA NEGATIVE (< 200 ng/mL); Benzodiazepine Urine VISTA NEGATIVE (< 200 ng/mL); Cocaine Urine VISTA NEGATIVE (< 300 ng/mL); Ecstacy Urine VISTA NEGATIVE (< 500 ng/mL); Methadone Urine VISTA NEGATIVE (< 300 ng/mL); PCP Urine VISTA NEGATIVE (< 25 ng/mL); THC Urine VISTA NEGATIVE (< 50 ng/mL); Vista UDS pH Range 6
[2020-07-31] MEDS: Lactated Ringers 500 ML 999 ML IV (10:00)
[2020-07-31] MEDS: fentaNYL-bupivacaine (epidural) 100 ML BAG EPIDURAL (11:16)
[2020-07-31 11:49] LABS: BUP Internal Control LINE = VALID (VALID); Buprenorphine Drug Screen Negative (<10 ng/mL)
[2020-07-31] MEDS: Oxytocin 10 UNITS/ML Vial IM (13:23)
[2020-07-31] MEDS: Methylergonovine 0.2 MG/ML Ampul IM (13:27)
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
--- NOTE | 2020-07-31 14:26 | PCM.OPRPT ---
Vaginal Delivery Maternal Presentation: Medically Indicated Induction Method of Induction: Pitocin, Amniotomy Medical Reason for Induction: Post term Amniotic Membrane Rupture Type: Artificial Amniotic Fluid Description: Clear Final ITZEL: 07/19/20 Final ITZEL Source: US <20 weeks Gestational age: 41 Weeks and 5 Days Date of Procedure: 07/31/20 Pre-Operative Diagnosis: IUP, Postdatism Post-Operative Diagnosis: IUP, Postdatism Surgery/ Procedure Performed: Spontaneous Vaginal Delivery Type of Anesthesia: Epidural, Local with 1% lidocaine Description of Procedure: Spontaneous vaginal delivery of a viable male with Apgars of 9/9 from an occiput anterior presentation with clear amniotic fluid and normal three-vessel placenta. No episiotomy. First-degree midline laceration repaired with 3-0 Rapide suture under epidural and local. Sponges okay. Delivery physician: Low Corbett MD. Presentation: Vertex Placental Delivery Description: Spontaneous Placenta Disposition: [facility] Cord Vessel Description: 3 Vessels Cord Entanglement: None Estimated Blood Loss: 250 cc Infant A gender: Male (1 minute): 9 (5 minute): 9 Episiotomy Description: None Laceration: Midline, 1st degree Medications given after delivery: IM [place], - - IM Pitocin Complications: None
--- NOTE | 2020-07-31 14:29 | DCINST_ITS ---
Discharge Diet: No Restrictions Discharge Activity: May Shower, May Take a Tub Bath May resume sexual activity in: 6 weeks Call your doctor if you observe: Fever of 101 or Higher, Inability to urinate, Inability to have a bowel movement, Using more than one pad per hour Additional Instructions: If you experience any of the following, contact your healthcare provider. * Bleeding that soaks a pad every hour for 2 hours * Fever 100.4 or higher * Unrelieved incision or abdominal pain * Swelling, redness, discharge or bleeding from your incision or episiotomy site * Your incision begins to separate * Problems urinating (including inability to urinate or burning while urinating). * Visual changes * Severe headache * Flu-like symptoms * Pain or redness in one of both of your breasts * Pain, warmth, tenderness or swelling in your legs, especially the calf area * Frequent nausea and vomiting * Symptoms of depression or anxiety If you experience any of the following, call 911 or go to the nearest Emergency Room. * Chest pain * Problems breathing * Seizure activity * Partial or complete paralysis of a body part, slurred speech, weakness or drooping of the face, or a sudden inability to walk or hold your balance Allergies/Adverse Reactions: Allergies clindamycin Adverse Reaction (Verified 07/31/20 07:15) Vomiting red meats Allergy (Uncoded 07/31/20 07:15) Food Allergy Medications to take at Discharge Lansoprazole [Prevacid] 30 mg PO DAILY 07/25/20 Albuterol Inhaler PRN PRN 07/31/20 Vits [Prenatabs FA ] 07/31/20 Please Follow Up With: Gustavo Ortiz MD When: 6 weeks for check Primary Care Physician: Care Physician,No Primary [Primary Care Provider] - Test Results: Test results from this visit will be discussed in further detail at your follow- up appointment, if applicable.
--- NOTE | 2020-07-31 14:29 | PCM.DCVAG ---
Discharge Diet: No Restrictions Discharge Activity: May Shower, May Take a Tub Bath May resume sexual activity in: 6 weeks Call your doctor if you observe: Fever of 101 or Higher, Inability to urinate, Inability to have a bowel movement, Using more than one pad per hour Additional Instructions: If you experience any of the following, contact your healthcare provider. Bleeding that soaks a pad every hour for 2 hours Fever 100.4 or higher Unrelieved incision or abdominal pain Swelling, redness, discharge or bleeding from your incision or episiotomy site Your incision begins to separate Problems urinating (including inability to urinate or burning while urinating). Visual changes Severe headache Flu-like symptoms Pain or redness in one of both of your breasts Pain, warmth, tenderness or swelling in your legs, especially the calf area Frequent nausea and vomiting Symptoms of depression or anxiety If you experience any of the following, call 911 or go to the nearest Emergency Room. Chest pain Problems breathing Seizure activity Partial or complete paralysis of a body part, slurred speech, weakness or drooping of the face, or a sudden inability to walk or hold your balance Allergies/Adverse Reactions: Allergies clindamycin Adverse Reaction (Verified 07/31/20 07:15) Vomiting red meats Allergy (Uncoded 07/31/20 07:15) Food Allergy Medications to take at Discharge Lansoprazole [Prevacid] 30 mg PO DAILY 07/25/20 Albuterol Inhaler PRN PRN 07/31/20 Vits [Prenatabs FA ] 07/31/20 Please Follow Up With: Gustavo Ortiz MD When: 6 weeks for check Primary Care Physician: Care Physician,No Primary [Primary Care Provider] - Test Results: Test results from this visit will be discussed in further detail at your follow-up appointment, if applicable.
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
[2020-07-31] MEDS: Ibuprofen 600 MG Tablet PO ×2 (16:24→22:51)
[2020-07-31] MEDS: Acetaminophen 500 MG Tablet 1000 MG PO (20:46)
[2020-08-01 03:20] VITALS: BP 112/70; PULSE 90; RESP 18; TEMP 37.3; O2SAT 96
[2020-08-01] MEDS: Acetaminophen 500 MG Tablet 1000 MG PO (04:25)
[2020-08-01] MEDS: Ibuprofen 600 MG Tablet PO ×3 (08:54→20:34)
--- NOTE | 2020-08-01 09:00 | PN.OBGYN_ITS ---
Subjective: Patient without complaints. Bottlefeeding. Baby needs to stay for about 5 days. Otherwise, patient is ready to go home. Reports minimal vaginal bleeding. - Physical Exam Vitals/I&O's: Vital Signs Temp Pulse Resp BP Pulse Ox 99.1 F 90 18 112/70 96 08/01/20 03:20 08/01/20 03:20 08/01/20 03:20 08/01/20 03:20 08/01/20 03:20 Oxygen Delivery Method Room Air Weight: 252 lb 10.396 oz Body Mass Index (BMI) 40.8 Intake and Output for Last 24 Hours 07/30/20 07/31/20 08/01/20 23:59 23:59 23:59 Intake Total 1372.53 / 1372.53 Output Total 900 / 900 Balance 472.53 / 472.53 Laboratory Results 07/31/20 07:30: Blood Type A POSITIVE, Antibody Screen NEGATIVE 07/31/20 08:40: Urine Opiates Screen NEGATIVE, Urine Methadone Screen NEGATIVE, Ur Barbiturates Screen NEGATIVE, Ur Phencyclidine Scrn NEGATIVE, Ur Amphetamines Screen NEGATIVE, U Methamphetamin-MDMA NEGATIVE, U Benzodiazepines Scrn NEGATIVE, Urine Cocaine Screen NEGATIVE, U Cannabinoids Screen NEGATIVE, Ur Drug Screen Comment 07/31/20 08:40: Miscellaneous Test Pending 07/31/20 08:40: Ur Buprenorphine Scrn Negative, Ur Drug Screen Comment Current Medications Acetaminophen (Acetaminophen 500 Mg Tablet) 1,000 mg PO Q8H PRN PRN PRN Reason: Pain Score 1-3 Last Admin: 08/01/20 04:25 Dose: 1,000 mg Documented by: Albuterol Sulfate (Albuterol 2.5 Mg/3 Ml Vial.Neb.) 2.5 mg INHALATION Q4H PRN PRN PRN Reason: Wheezing Bisacodyl (Bisacodyl 10 Mg Suppository) 10 mg RECTAL UD PRN PRN Reason: If no BM Dibucaine (Dibucaine 30 Gm Tube) 1 applic TOPICAL TID PRN PRN; Protocol PRN Reason: Discomfort Hydrocortisone (Hydrocortisone 2.5% Crm) 1 applic TOPICAL TID PRN PRN; Protocol PRN Reason: Discomfort Ibuprofen (Ibuprofen 600 Mg Tablet) 600 mg PO Q6H PRN PRN PRN Reason: Pain Score 1-3 Last Admin: 08/01/20 08:54 Dose: 600 mg Documented by: Methylergonovine Maleate (Methylergonovine 0.2 Mg/Ml Ampul) 0.2 mg IM X1 PRN PRN Reason: Excess bleeding/uterine atony Last Admin: 07/31/20 13:27 Dose: 0.2 mg Documented by: Nicotine (Nicotine 14 Mg Patch) 14 mg TD DAILY CLEMENTE Ondansetron HCl (Ondansetron 4 Mg/2 Ml Vial) 4 mg IV Q4H PRN PRN PRN Reason: Nausea Oxycodone HCl (Oxycodone 5 Mg Tablet) 5 - 10 mg PO Q4H PRN PRN PRN Reason: Pain Score 4-10 Pantoprazole Sodium (Pantoprazole Sodium 40 Mg Tablet) 40 mg PO DAILY CELMENTE Senna/Docusate Sodium (Senna/Docusate Sodium 1 Tablet) 1 - 2 tablet PO DAILY PRN PRN PRN Reason: Constipation Simethicone (Simethicone 80 Mg Tablet) 80 mg PO PCHS PRN PRN Reason: Indigestion/Stomach pain Sodium Chloride (0.9% Saline Lock 10 Ml Syringe) 5 - 15 ml IV UD PRN PRN Reason: SALINE FLUSH Zolpidem Tartrate (Zolpidem Tartrate 5 Mg Tablet) 5 mg PO QHS PRN PRN PRN Reason: Insomnia Medical Necessity - Tobacco Use Smoking Status: Heavy Smoker (>10/day) Assessment/Plan All Active Problems Suicidal ideations (Acute) Homicidal ideations (Acute) Doing well day #1 status post routine spontaneous vaginal delivery. Continuing present care. Anticipate going to [facility] status tomorrow.
[2020-08-01 11:40] VITALS: BP 124/61; PULSE 97; RESP 18
[2020-08-01 16:15] VITALS: BP 111/69; PULSE 91; RESP 18; TEMP 36.6; O2SAT 97
[2020-08-01 20:10] VITALS: BP 108/48; PULSE 94; RESP 16; TEMP 36.6; O2SAT 97
[2020-08-02] MEDS: Ibuprofen 600 MG Tablet PO (03:31)
[2020-08-02 03:34] VITALS: BP 115/71; PULSE 75; RESP 18; TEMP 36.6
[2020-08-02 08:05] VITALS: BP 127/69; PULSE 93; RESP 18; TEMP 36.9; O2SAT 97
--- NOTE | 2020-08-02 11:05 | PCM.PN.OB ---
Subjective: Patient without complaints. Minimal vaginal bleeding. Wants to go to hotel status is baby needs to stay for a few more days. - Physical Exam Vitals/I&O's: Vital Signs Temp Pulse Resp BP Pulse Ox 98.4 F 93 18 127/69 H 97 08/02/20 08:05 08/02/20 08:05 08/02/20 08:05 08/02/20 08:05 08/02/20 08:05 Oxygen Delivery Method Room Air Weight: 252 lb 10.396 oz Body Mass Index (BMI) 40.8 Intake and Output for Last 24 Hours 07/31/20 08/01/20 08/02/20 23:59 23:59 23:59 Intake Total 1372.53 / 1372.53 Output Total 900 / 900 Balance 472.53 / 472.53 Current Medications Acetaminophen (Acetaminophen 500 Mg Tablet) 1,000 mg PO Q8H PRN PRN PRN Reason: Pain Score 1-3 Last Admin: 08/01/20 04:25 Dose: 1,000 mg Documented by: Albuterol Sulfate (Albuterol 2.5 Mg/3 Ml Vial.Neb.) 2.5 mg INHALATION Q4H PRN PRN PRN Reason: Wheezing Bisacodyl (Bisacodyl 10 Mg Suppository) 10 mg RECTAL UD PRN PRN Reason: If no BM Dibucaine (Dibucaine 30 Gm Tube) 1 applic TOPICAL TID PRN PRN; Protocol PRN Reason: Discomfort Hydrocortisone (Hydrocortisone 2.5% Crm) 1 applic TOPICAL TID PRN PRN; Protocol PRN Reason: Discomfort Ibuprofen (Ibuprofen 600 Mg Tablet) 600 mg PO Q6H PRN PRN PRN Reason: Pain Score 1-3 Last Admin: 08/02/20 03:31 Dose: 600 mg Documented by: Lansoprazole (Lansoprazole 15 Mg Capsule.Dr) 30 mg PO DAILY [facility] Last Admin: 08/02/20 10:00 Dose: Not Given Documented by: Methylergonovine Maleate (Methylergonovine 0.2 Mg/Ml Ampul) 0.2 mg IM X1 PRN PRN Reason: Excess bleeding/uterine atony Last Admin: 07/31/20 13:27 Dose: 0.2 mg Documented by: Nicotine (Nicotine 14 Mg Patch) 14 mg TD DAILY [facility] Last Admin: 08/02/20 09:55 Dose: 14 mg Documented by: Ondansetron HCl (Ondansetron 4 Mg/2 Ml Vial) 4 mg IV Q4H PRN PRN PRN Reason: Nausea Oxycodone HCl (Oxycodone 5 Mg Tablet) 5 - 10 mg PO Q4H PRN PRN PRN Reason: Pain Score 4-10 Senna/Docusate Sodium (Senna/Docusate Sodium 1 Tablet) 1 - 2 tablet PO DAILY PRN PRN PRN Reason: Constipation Simethicone (Simethicone 80 Mg Tablet) 80 mg PO PCHS PRN PRN Reason: Indigestion/Stomach pain Sodium Chloride (0.9% Saline Lock 10 Ml Syringe) 5 - 15 ml IV UD PRN PRN Reason: SALINE FLUSH Zolpidem Tartrate (Zolpidem Tartrate 5 Mg Tablet) 5 mg PO QHS PRN PRN PRN Reason: Insomnia Medical Necessity - Tobacco Use Smoking Status: Heavy Smoker (>10/day) Assessment/Plan All Active Problems Suicidal ideations (Acute) Homicidal ideations (Acute) Doing well day #2 status post routine spontaneous vaginal delivery. Home-going instructions given and will moved to [facility] status today.
[2020-08-02 13:03] VITALS: BP 126/74; PULSE 100; RESP 20; TEMP 37
--- NOTE | 2020-08-02 18:33 | NURSING ---
1450- to hotel status. pt and mother aware of policy regarding this.
== END 2020-08-02 14:50 | disposition home or self-care (01) | DRG 560 ==
PROVIDERS: Admitting Provider Obstetrics & Gynecology; Visit Provider Obstetrics & Gynecology
DX: O48.0 Post-term pregnancy (principal); O99.824 Streptococcus B carrier state complicating childbirth; O99.52 Diseases of the respiratory system complicating childbirth; J45.909 Unspecified asthma, uncomplicated; O99.62 Diseases of the digestive system complicating childbirth; K21.9 Gastro-esophageal reflux disease without esophagitis; O99.334 Smoking (tobacco) complicating childbirth; F17.200 Nicotine dependence, unspecified, uncomplicated; O70.0 First degree perineal laceration during delivery; Z3A.41 41 weeks gestation of pregnancy; Z37.0 Single live birth
CPT/HCPCS: 59025; 59050; 80307; 85025; 86850; 86900; 86901; 99218; J7120; G0378

== ENCOUNTER → 2020-09-10 | Outpatient (CLI) | payer MEDICAID, SELFPAY ==
[2020-07-31 07:15] VITALS: BMI 40.8
[2020-09-13 03:07] LABS: Chlamydia By Nucleic Acid AMP Negative (Negative)
[2020-09-13 11:49] LABS: Gonococcus By Nucleic Acid AMP Negative (Negative)
[2020-09-19 11:10] LABS: HPV APTIMA, High Risk Positive (Negative); HPV Reflexed? YES, CHARGE PATIENT
== END | disposition home or self-care (01) ==
LOC: LABSPEC 16:48
PROVIDERS: Visit Provider Obstetrics & Gynecology
DX: Z12.4 Encounter for screening for malignant neoplasm of cervix (principal); Z11.3 Encounter for screening for infections with a predominantly sexual mode of transmission
CPT/HCPCS: 87491; 87591; 87624; 88175; G0145

== ENCOUNTER 2020-11-10 08:44 | Day surgery (SDC) | payer MEDICAID, SELFPAY ==
[2020-07-31 07:15] VITALS: BMI 40.8
[2020-11-07 14:23] LABS: Hematocrit 36.3 % (37-47); Hemoglobin 11.3 g/dL (12.0-15.0); Mean Corp Hgb Conc 31.1 g/dL (32-36); Mean Corpuscular Hgb 26.9 pg (27.0-32.0); Mean Corpuscular Volume 86.4 fL (81-99); Mean Platelet Vol. 9.7 fl (6.2-12.0); Platelet Count 337 K/mm3 (150-450); RBC Distribution Width CV 16.8 % (11.6-14.6); RBC Distribution Width SD 52.6 fl (35.1-43.9); White Blood Count 6.1 K/mm3 (4.4-11.0)
[2020-11-07 14:33] LABS: Partial Thromboplast Time 29.9 Seconds (24.1-36.2); Prothrombin Time (Protime)PT. 12.2 SECONDS (11.7-14.9)
[2020-11-07 14:38] LABS: Internal QC Validated? YES +Cl - CLEAR BKGD; Pregnancy, Serum, hCG Quali. NEGATIVE Negative
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
[2020-11-10] VITALS (11 sets, daily range): BP systolic 83–109; BP diastolic 51–71; PULSE 52–71; RESP 14–16; TEMP 36.1–36.9; O2SAT 92–100; BMI 35.5
--- NOTE | 2020-11-10 | IMM_PTH ---
PATIENT: LUKE CHO LOC: [facility] [place] U#:[id number] AGE/SX: 30/F ROOM: RE11/10/[address]: Dr. Low Corbett MD : 1990 BED: DIS: 11/10/2020 SPEC #: [id number] RECD: 11/11/20 12:06 STATUS: KERRI REQ #: [id number] TONG: 11/10/20 00:[address]: Low Corbett DEPT: IMMUNOHISTOCHEMISTRY RECD BY: Angela Hernandez ENTERED: 11/11/20 12:08 SP TYPE: IMMUNO OTHR DR: Dr. Forrest Valente MD Tissues: A - Uterine cervix, NOS Procedures: p16 (initial) KI-67 (add) P16 (add) PHYSICIAN & INSTITUTION [place] [id number] SPECIMEN INFORMATION: Tissue Source: A - Ectocervix Clinical Info: Sterilization, atypical squamous cells, smear with positive high-risk HPV culture Specimen Number: [id number] CPT code: 99909, 98885 x7 METHODOLOGY: Deparaffinized sections of prefer/formalin-fixed tissue or PAP/DQ stained slides are incubated with monoclonal/polyclonal antibodies/oligonucleotide probes. Localization is made via biotin free immunoperoxidase method. Appropriate controls are performed and reacted as expected. Results on target cell population are indicated in the following table: RESULTS: ANTIBODY / CLONE RESULT Block A1 P16 (E6H4) negative Ki-67 (30-9) negative Block A2 P16 (E6H4) positive, rare cells Ki-67 (30-9) negative Block A3 P16 (E6H4) positive, patchy to focal block-like Ki-67 (30-9) positive, low Block A4 P16 (E6H4) positive, patchy to focal block-like Ki-67 (30-9) positive, low These tests were developed and their performance characteristics determined by [facility]. They may not have been cleared or approved by the U.S. Food and Drug Administration. The FDA has determined that such clearance or approval is not necessary. The above immunohistochemical/dualISH markers are ordered and reviewed by the Pathologist. INTERPRETATION: A. Ectocervix, LEEP conization: Mild and focal moderate squamous dysplasia, LILLY I-II (LSIL). AM:vivi 11/12/2020
[2020-11-10 09:17] LABS: Internal QC Validated? YES +Cl - CLEAR BKGD
[2020-11-10 09:21] LABS: Pregnancy, Urine Negative Negative
[2020-11-10] MEDS: Lactated Ringers 1,000 ML 100 ML IV ×2 (09:28→11:53)
[2020-11-10] MEDS: Cefotetan 2 GM in 0.9% NS 100 ML IV (10:21)
--- NOTE | 2020-11-10 10:29 | PCM.DC.TUB ---
Discharge Diet: No Restrictions - Increase fluid intake for the next 48 hours. Discharge Activity: Return to Normal Activity, May Drive - when you are no longer taking pain/narcotic medicines., May Shower, May Take a Tub Bath May resume sexual activity in: 4 weeks Additional Activity Instructions:: Ambulate often the next week after surgery. Nothing in the vagina for 5 days. Call your doctor if your incision/area has: Continuous Slow Oozing, Sudden Increased Bleeding, Increased Pain/ Swelling, Increased Redness, Foul Smelling Discharge Call your doctor if you observe: Fever of 101 or Higher, Inability to urinate, Inability to have a bowel movement, Using more than one pad per hour Allergies/Adverse Reactions: Allergies clindamycin Adverse Reaction (Verified 11/04/20 11:05) Vomiting red meats Allergy (Uncoded 11/04/20 11:05) Food Allergy Medications to take at Discharge Lansoprazole [Prevacid] 60 mg PO DAILY 07/25/20 Albuterol Inhaler [Ventolin Hfa (SP)] 1 - 2 puff INHALATION Q6H PRN PRN 11/04/20 Aspirin E.C. [Ecotrin] 325 mg PO Q4H PRN PRN 11/04/20 Fluticasone 0.05% [Flonase Nasal [place]] 2 spray NASAL DAILY 11/04/20 Ibuprofen 200 mg PO PRN PRN 11/04/20 Oxycodone [Oxyir] 5 mg PO Q6H PRN PRN 7 Days #7 tab 11/10/20 The following prescriptions were given: Oxycodone [Oxyir] 5 mg PO Q6H PRN PRN 7 Days #7 tab PRN Reason: Pain Score 6-10 Transmission Status: Sent to [facility] Primary Care Physician: Forrest Valente MD [Primary Care Provider] - Test Results: Test results from this visit will be discussed in further detail at your follow-up appointment, if applicable. Please Follow Up With: Low Corbett MD - [phone] When: 3-4 weeks
--- NOTE | 2020-11-10 10:30 | OP.PCM_ITS ---
Report of Operation Date of Procedure: 11/10/20 Pre-Operative Diagnosis: Desires Permanent Sterilization and Atypical Squamous Cells of Undetermined Significant Pap Smear with Positive High-Risk HPV Culture Post-Operative Diagnosis: Desires Permanent Sterilization and Atypical Squamous Cells of Undetermined Significant Pap Smear with Positive High-Risk HPV Culture Surgery/Procedure Performed:: LEEP Conization of the Cervix and Bilateral Laparoscopic Salpingectomy Description of Surgical Findings:: Normal appearing cervix, uterus, ovaries, and fallopian tubes. perishable fruit inspector: Efrain Jimenes +Samra Ramirez Type of Anesthesia:: General - Endotracheal Anesthesiologist: Giovana Olguin Specimen's removed: Ectocervix, endocervix, endocervical curettings after LEEP and bilateral fallopian tubes Estimated Blood Loss (mL): Minimal Fluids Replaced: Crystalloid Description of Procedure: Surgeon: Low Corbett MD, FACOG Indications: This is a 30 year old patient who has the above diagnosis. She has considered sterilization for quite some time. She is aware of the permanent nature of the procedure, the failure rate of 1-2%, and the availability of other nonpermanent control options. The patient also had a recent abnormal Pap smear with atypical squamous cells of undetermined significance and positive HPV culture but declined having colposcopy done in the office. She desires we proceed with LEEP. We also discussed the risk indications alternatives of this procedure and desires that we proceed. All questions were answered regarding both procedures. Procedure: Patient taken to the operating room where she was given IV sedation and placed in the dorsal lithotomy position and prepped and draped in the usual sterile fashion. The bladder was drained of approximately 100 cc of clear yellow urine with a rubber catheter. Cervix was visualized and painted with Lugol's solution. The ectocervix was then removed to a depth of 5 mm on a setting of 50 W cutting and endocervix removed to a depth of 7 mm on a setting of 50 W cutting. Endocervical curettings were obtained. Base of the cone was then cauterized a setting of 50 W coagulation and Monsel's was painted across the LEEP base. Attention was turned toward the laparoscopic portion of procedure. Approximately 20 cc of half percent ropivacaine was injected subumbilically, suprapubically and midway between. A 5 mm bladeless trocar was placed subumbilically and intraperitoneal placement confirmed. After CO2 insufflation was complete, a 5 mm bladeless trocar was introduced suprapubically. The above findings were noted. A 5 mm bladeless port was then placed midway between these 2 ports for tubal manipulation. Each fallopian tube was identified to its fimbriated end and an Enseal device was used to divide the mesosalpinx to the uterus. Tubes were removed through the lower 5 mm port. The peritoneal cavity and upper abdomen were examined and noted to be normal. Photographs were taken. Laparoscopic instruments with as much CO2 gas as possible were removed and inc isions were closed with interrupted 4-0 Monocryl suture. Steri-Strips placed across the incision. The patient tolerated the procedure well was taken to recovery room in satisfactory condition and sponge instrument and needle counts were all reportedly correct. Estimated blood loss for the case was minimal. There were no apparent complications of the surgery. Cefotetan 2 g IV was given prior to beginning the operative procedure. Specimens to pathology was ectocervix, endocervix, ECC after LEEP and bilateral tubes EBL Minimal Grafts/Implants Used: None - Complications None - Admit VTE Documentation VTE Present on Admission: Yes VTE Mechan Device Prophylaxis: SCD's
[2020-11-10] MEDS: Lubricating Jelly 60 GM Tube 30 GM TOPICAL (10:45)
[2020-11-10] MEDS: FERRIC SUBSULFATE 8 GM SOLN (10:55)
[2020-11-10] MEDS: Iodine/Potassium Iodide 14ML Bottle 1 DRP TOPICAL (10:55)
[2020-11-10] MEDS: Ropivacaine 0.5% 30 ML Vial (11:00)
--- NOTE | 2020-11-10 11:15 | CONE_PTH ---
PATIENT: LUKE CHO LOC: [facility] U#:[id number] AGE/SX: 30/F ROOM: RE11/10/[address]: Dr. Low Corbett MD : 1990 BED: DIS: 11/10/2020 SPEC #: [id number] RECD: 11/10/20 12:15 STATUS: KERRI REKole #: [id number] TONG: 11/10/20 11:[address]: Low Corbett DEPT: SURGICAL PATHOLOGY RECD BY: Geeta Barahona ENTERED: 11/10/20 13:14 SP TYPE: Leep Emmett BARRERA DR: Dr. Forrest Valente MD Tissues: A - UTERINE CERVIX LEEP B - UTERINE CERVIX LEEP C - Endocervical D - Fallopian tube Procedures: Surgery Specimen Level II Surgery Specimen Level IV Surgery Specimen Level V HEADER OPERATION: Laparoscopic bilateral salpingectomy, LEEP PRE-OP DIAGNOSIS: Sterilization, atypical squamous cells, smear with positive high risk HPV culture TISSUE SUBMITTED: A - Ectocervix, B - Endocervix, C - ECC after LEEP, D - Bilateral fallopian tubes MICROSCOPIC DIAGNOSIS A. Ectocervix, LEEP conization: Mild and focal moderate squamous dysplasia, LILLY I-II (HSIL). Chronic inflammation. Margins of excision free of dysplasia. See comment. B. Endocervix, LEEP conization: Chronic inflammation. No evidence of dysplasia. C. Cervix, curettings: Strips of benign superficial endocervix. No evidence of dysplasia. D. Right and left fallopian tubes, bilateral salpingectomies: Two complete segments of fallopian tubes with no pathologic change. AM:vivi 11/11/2020 COMMENT A. Results from immunohistochemistry ([id number]) for surrogate HPV marker (p16) will be reported separately. Case has been reviewed in consultation with Dr. Branch who concurs with the above diagnosis. IDC:SJ MICROSCOPIC DESCRIPTION Slides are reviewed. GROSS DESCRIPTION A - Received in fixative is one container labeled with the patient's name and designated ectocervix. The specimen consists of a previously opened piece of nur, indurated tissue consistent with LEEP conization measuring 3.5 x 0.5 x 0.2 cm. No mucosal lesion is identified. Nonmucosal surface is inked black. The specimen is serially sectioned and submitted entirely in four cassettes with each cassette containing one quadrant. B - Received in fixative is one container labeled with the patient's name and designated endocervix. The specimen consists of two pieces of nur, indurated tissue consistent with LEEP conization measuring 0.4 x 0.3 x 0.1 cm. No mucosal lesion is identified. Nonmucosal surface is inked black. The largest piece is serially sectioned. The entire specimen is submitted in one cassette. C - Received in fixative is one container labeled with the patient's name and designated ECC after LEEP. The specimen consists of multiple fragments of hemorrhagic mucoid tissue that in aggregate measure 2 x 1 x 0.1 cm. The specimen is totally submitted in one cassette. D - Received in fixative is one container labeled with the patient's name and designated bilateral fallopian tubes. The specimen consists of bilateral fallopian tubes including fimbrial ends measuring 6 cm in length and 0.5 cm in diameter. The second fallopian tube is received in two pieces and measures 6 cm in length and 0.5 cm in diameter. The fallopian tubes are not identified as right or left. Sections reveal unremarkable cut surfaces. Public Relations Analyst sections are submitted in two cassettes as follows: 1 - one fallopian tube, 2 - fallopian tube received in two pieces. / SJ:rg 11/10/20 TC:3 CPT: 67376 x2, 34592, 27709 x2
[2020-11-10] MEDS: oxyCODONE 5 MG Tablet PO (13:23)
== END 2020-11-10 14:39 | disposition home or self-care (01) ==
LOC: SDC 08:44 → AC 08:45
PROVIDERS: Anesthesiology; PCP Family Medicine; Referring Provider Obstetrics & Gynecology; Visit Provider Obstetrics & Gynecology
PROC: (CPT 58661; principal; 2020-11-10 11:00)
DX: Z30.2 Encounter for sterilization (principal); N87.1 Moderate cervical dysplasia; R87.810 Cervical high risk human papillomavirus (HPV) DNA test positive; F17.200 Nicotine dependence, unspecified, uncomplicated; Z20.822 Contact with and (suspected) exposure to COVID-19
CPT/HCPCS: 00840; 57522; 58661; 36415; 81025; 84703; 85027; 85610; 85730; 86850; 86900; 86901; 87426; 88302; 88305; 88307; 88341; 88342; C9803; J7120; J2405

== ENCOUNTER 2021-05-12 13:39 | Emergency (ER) | payer MEDICAID, SELFPAY ==
[2021-05-12 13:40] VITALS: BP 108/65; PULSE 58; RESP 16; TEMP 36.2; O2SAT 99; BMI 33.0
--- NOTE | 2021-05-12 14:18 | EKG12_ITS ---
Test Reason : CP Blood Pressure : / mmHG Vent. Rate : 075 BPM Atrial Rate : 075 BPM P-R Int : 110 ms QRS Dur : 072 ms QT Int : 352 ms P-R-T Axes : 011 029 033 degrees QTc Int : 393 ms Sinus rhythm with short AR Otherwise normal ECG Confirmed by PACO RAMIREZ, HALEY ([id number]), newspaper copy editor BARBARA FLEMING ([id number]) on 05/13/2021 9:04:35 AM Referred By: Confirmed By:HALEY ANTONIO MD
--- NOTE | 2021-05-12 14:19 | EDS_ITS ---
HPI History of Present Illness Chief Complaint: Chest Pain Informant: patient Onset/Context/Timing Onset: Days (2-3) Activity at onset: gradual and activity on onset (Random) Timing: Intermittent (With mild continuous discomfort remaining in between severe episodes) and Lasts (A minute) Quality: Positive for Pain Location: Substernal (w/ radiation into mid upper back) Current Severity: Mild Maximum Severity: Severe Worsened By: Nothing; Not Worsened By Breathing Relieved By: Nothing Associated Symptoms: Positive for Dyspnea; Negative for Nausea, Vomiting, Shannon phoresis, Cough, Fever, Lightheadedness and Palpitations Narrative Narrative: Patient with intermittent chest pain and mid upper back pain for the past couple days. She also states it is starting to make her feel little short of breath when she gets it, although it is relatively brief. She is not short of breath in between episodes. She denies any palpitations or near syncope/syncope. She denies any history of DVT or PE, risk factors for them, nor unilateral leg pain/swelling although she has had cramping in her feet lately, decreased urine output, and decreased fluid intake for no obvious reason of hers. She denies any abdominal/GI symptoms except for a brief sharp lower abdominal pain that happened last week. She also states she is having some tingling in her hands off-and-on not necessarily associated with the episodes of chest discomfort. She states she also feels foggy in her brain and cannot explain it. She denies headache, changes in her vision, photophobia, dizziness, or loss of consciousness. CVD Risk Factors: Positive for Family History 1' </=55 (Mother and all of her sisters) and Smoking; Negative for Hypertension, Diabetes and Hypercholesterolemia PE Risk Factors: Negative for Recent Travel/Surgery, Recent Immobilization, Prior DVT or PE, Cancer and OCP + Smoking + >/=35 PFSH PFSH Medical History Anxiety Bipolar 1 disorder Depression Home Medications lansoprazole 60 mg PO DAILY 07/25/20 [History Last Taken 07/24/20 20:00] albuterol sulfate 1 - 2 puff INHALATION Q6H PRN PRN 11/04/20 [History Last Taken Unknown] aspirin 325 mg PO Q4H PRN PRN 11/04/20 [History Last Taken Unknown] fluticasone propionate 2 spray NASAL DAILY 11/04/20 [History Last Taken Unknown] ibuprofen 200 mg PO PRN PRN 11/04/20 [History Last Taken Unknown] Allergy/AdvReac Type Severity Reaction Status Date / Time clindamycin AdvReac Vomiting Verified 05/12/21 13:42 red meats Allergy Food Uncoded 05/12/21 13:42 Allergy Social History Smoking Status: Heavy Smoker (>10/day) ROS ROS ED Constitutional Constitutional ED: Denies chills or fever(s) Eyes Eyes: Denies change in vision or diplopia ENT ENT ED: Denies rhinorrhea or sore throat Cardiovascular Cardiovascular: Reports chest pain; Denies palpitations Respiratory/Chest Respiratory/Chest: Reports dyspnea; Denies cough Gastrointestinal Gastrointestinal: Denies abdominal pain, diarrhea, nausea or vomiting Genitourinary Genitourinary ED: Reports decreased urination; Denies dysuria or hematuria Musculoskeletal Musculoskeletal: Reports back pain and muscle cramps; Denies neck pain Integumentary Denies abscess or rash Neurologic Neurologic: Reports paresthesias; Denies headache(s) or weakness Psychiatric Psychiatric: Denies anxiety or suicidal thoughts EXAM Physical Exam Const Vital Signs: 05/12/21 13:40 05/12/21 13:47 05/12/21 14:28 Temperature 97.1 F L Temperature Source Temporal Pulse Rate 58 L Respiratory Rate 16 Respiratory Effort Normal Non-Labored Blood Pressure 108/65 Blood Pressure Mean 79 Pulse Ox 99 Oxygen Delivery Method Room Air Room Air 05/12/21 14:40 05/12/21 15:00 05/12/21 16:00 Temperature Temperature Source Pulse Rate 94 72 82 Respiratory Rate 16 20 H 22 H Respiratory Effort Blood Pressure 161/134 H 113/76 113/76 Blood Pressure Mean 143 88 88 Pulse Ox 96 100 100 Oxygen Delivery Method Room Air Room Air Room Air Positive well nourished and well developed General Appearance ED: well developed and NAD HEENT Reports moist mucous membranes normocephalic and atraumatic Eyes PERRL and EOMs intact bilaterally Neck full ROM and supple Resp normal respiratory effort and clear to auscultation bilaterally Cardio regular rate, regular rhythm and no murmurs Rate: Negative for tachycardic GI non-tender and non-distended Auscultation: normoactive bowel sounds Palpation: soft Back/Spine no CVA tenderness General Back: other FROM Extremity normal to inspection and no calf tenderness General Extremety ED: Negative for edema, pulses abnormal or tenderness General Extremity: Negative for edema or pulses abnormal Neuro oriented x3, CN's II-XII intact bilaterally and no sensory deficits noted Sensorium / Orientation: awake and alert Motor Exam: strength 5/5 throughout Skin no rashes or lesions noted and no wounds Heart Score History: Slightly/Non-Suspicious ECG: Normal Age: </= 45 years Risk Factors: 1 or 2 Risk Factors Troponin: </= Normal Limit Score: 1 MDM MDM MDM Narrative Medical decision making narrative: Work-up is negative including chest x-ray, EKG, troponin, and blood work except for a D-dimer which is slightly elevated even when corrected for age, so CT angiography of the chest was obtained to rule out dissection primarily also pulmonary embolus, it was normal see below. Patient was reassured. She was given a GI cocktail which did not help anything, and on further discussion she states she has a history of esophagus problems for which she was prescribed Prevacid, but she is noncompliant with it and basically does not take it and has not for a long time but she states that she has it at home. I suggest that she start taking it and then follow-up with her doctor. All questions answered at bedside she is comfortable with this overall plan and has it at home to take. Lab Data Attestation: I reviewed the patient's lab results. Labs: Laboratory Results - last 24 hr 05/12/21 05/12/21 05/12/21 13:54 13:54 13:54 WBC 5.6 RBC 5.05 Hgb 13.7 Hct 42.1 MCV 83.4 MCH 27.1 MCHC 32.5 RDW Std Deviation 51.4 H RDW Coeff of Halina 16.9 H Plt Count 289 MPV 10.2 Immature Gran % (Auto) 0.200 Neut % (Auto) 35.8 L Lymph % (Auto) 50.9 H [place] % (Auto) 7.6 Eos % (Auto) 5.0 Baso % (Auto) 0.5 Absolute Neuts (auto) 2.0 Absolute Lymphs (auto) 2.87 Nucleated RBC % 0 D-Dimer Quant (PE/DVT) 0.79 H* Sodium 141 Potassium 3.9 Chloride 107 Carbon Dioxide 25.0 Anion Gap 9 BUN 9 Creatinine 0.88 Estim Creat Clear Calc 85.92 Est GFR (MDRD) Af Amer 95 Est GFR (MDRD) Non-Af 79 BUN/Creatinine Ratio 10.2 Glucose 99 Calcium 9.4 Troponin I High Sens 5 Radiography Diagnostic Testing: Clinical Impression(s) from Imaging Studies Chest X-Ray 05/12/21 14:45 IMPRESSION: No acute abnormality is seen. Electronically Signed: Jan Bhardwaj MD at 14:56 EDT , Service support , Chest CTA 05/12/21 14:50 IMPRESSION: Normal CTA chest examination, without a demonstrated pulmonary embolism or arterial dissection. Electronically Signed: Jan Bhardwaj MD at 15:37 EDT , Service support , EKG Initial EKG: Attestation: I personally reviewed and interpreted this EKG as follows: Interpretation: Sinus Rhythm (75 rate) and No Acute Injury Pattern Comments: normal axis Discharge Plan Triage Chief Complaint: Chest Pain ED Provider: Hector Morse Dx/Rx/DC Orders Clinical Impression: Chest pain of uncertain etiology Instructions: ED Chest Pain, Noncardiac Prescriptions: No Action lansoprazole 30 MG capsule 60 mg PO DAILY RF: 0 ibuprofen 200 MG capsule 200 mg PO PRN PRN (Reason: Pain 1-10 Or Fever) RF: 0 aspirin 325 MG tablet 325 mg PO Q4H PRN PRN (Reason: Pain 1-10 Or Fever) RF: 0 albuterol sulfate 1 INHALER inhaler 1 - 2 puff INHALATION Q6H PRN PRN (Reason: SOB/WHEEZING) RF: 0 fluticasone propionate 1 SPRAY spray,suspension 2 spray NASAL DAILY RF: 0 Primary Care Provider: Care Physician,No Primary Referrals: Care Physician,No Primary [Primary Care Provider] - Doctor,Your [STAFF PHYSICIAN] - 1 Week if not improving Activity Restrictions/Additional Instructions: If you have your Prevacid at home, take it daily as prescribed for at least 2 weeks and follow-up with your doctor regarding your symptoms. Disposition Disposition: Home, Self Care
[2021-05-12 14:31] LABS: Absolute Lymphocyte Count 2.87 X10^3/uL (0.83-4.51); Basophil# 0.03 X10^3/uL; Basophil% 0.5 % (0-1); Eosinophil# 0.28 X10^3/uL; Hematocrit 42.1 % (37-47); Hemoglobin 13.7 g/dL (12.0-15.0); Lymphocyte # 2.87 X10^3/ul (0.83-4.51); Lymphocyte % 50.9 % (19-41); Mean Corp Hgb Conc 32.5 g/dL (32-36); Mean Corpuscular Hgb 27.1 pg (27.0-32.0); Mean Corpuscular Volume 83.4 fL (81-99); Mean Platelet Vol. 10.2 fl (6.2-12.0); Monocyte# 0.43 X10^3/uL; Monocyte% 7.6 % (0-10); NRBC Flagged by Analyzer 0 % (0-5); Neutrophil # 2.02 X10^3/uL (2.7-7.7); Neutrophil % 35.8 % (47-70); Platelet Count 289 K/mm3 (150-450); RBC Distribution Width CV 16.9 % (11.6-14.6); RBC Distribution Width SD 51.4 fl (35.1-43.9); Red Blood Count 5.05 M/mm3 (4.2-5.4); White Blood Count 5.6 K/mm3 (4.4-11.0)
[2021-05-12] MEDS: 0.9% Normal Saline 1,000 ML 1000 ML IV (14:32)
[2021-05-12] MEDS: Mag Hydrox/Al Hydrox/Simeth 30 ML UDC PO (14:32)
[2021-05-12 14:40] VITALS: BP 161/134; PULSE 94; RESP 16; O2SAT 96
[2021-05-12 14:43] LABS: D-Dimer Quantitative (DVT/PE) 0.79 FEU/ug/m (0.27-0.49)
[2021-05-12 14:45] LABS: Anion Gap 9 (5-15); BUN 9 mg/dL (7-18); BUN/Creat Ratio 10.2 RATIO (10-20); Calcium,Total 9.4 mg/dL (8.5-10.1); Chloride 107 mmol/L (98-107); Creatinine, Serum 0.88 mg/dL (0.55-1.02); EST Glomerular Filtration Rate 79 mL/min (>60); Est Glom Filt Rate - Afr Amer 95 mL/min (>60); Estimated Creatinine Clearance 85.92 ml/min; Glucose 99 mg/dL (74-106); Potassium 3.9 mmol/L (3.5-5.1); Sodium Level 141 mmol/L (136-145); Troponin-I HS 5 pg/mL (3.0-54.0)
--- NOTE | 2021-05-12 14:45 | RAD_ITS ---
STUDY: X-RAY CHEST REASON FOR EXAM: Female, 30 years old. Chest pain TECHNIQUE: Single AP portable view of the chest. COMPARISON: Comparison is made with prior study dated 10/15/2019. FINDINGS: EKG lead clips are seen. The lungs are clear and expanded. There is no demonstrated pleural abnormality. Normal size heart. Normal mediastinum and christine. Normal visualized pulmonary arteries. Normal visualized aortic arch and descending thoracic aorta. There are diffuse degenerative changes of the visualized thoracic spine. Normal visualized ribs, clavicles, and shoulders. There is no demonstrated abnormality of the visualized soft tissue structures of the upper abdomen. RAD/Chest 1 View (Portable) IMPRESSION: No acute abnormality is seen. Electronically Signed: Jan Bhardwaj MD at 14:56 EDT , Service support ,
--- NOTE | 2021-05-12 14:50 | CT_ITS ---
STUDY: CTA CHEST REASON FOR EXAM: Female, 30 years old. Chest pain, sob, elevated d-dimer RADIATION DOSAGE (If Supplied By Facility): CTDIvol = ( 13.16 ) mGy, DLP = ( 403.53 ) mGycm TECHNIQUE: The examination was performed with the intravenous administration of IV 100mL Isovue-370. Post-processing of the angiographic images was performed, with multiplanar reformation and 3D reconstruction. Individualized dose optimization techniques were used for this CT. COMPARISON: None. FINDINGS: Normal enhancement of the main pulmonary artery and right and left pulmonary arteries. Normal enhancement of the bilateral peripheral pulmonary arteries. There is no demonstrated pulmonary embolism. Normal thoracic aorta and visualized great vessels. There is no demonstrated aortic dissection. Normal heart and pericardium. Normal mediastinum. Normal hilar regions. Normal visualized trachea and bronchi. The lungs are well expanded. Normal pulmonary parenchyma. Normal pleura. Normal chest wall structures. There are degenerative changes of thoracic spine. Normal visualized upper abdomen. CT/CTA Chest W/WO Contrast IMPRESSION: Normal CTA chest examination, without a demonstrated pulmonary embolism or arterial dissection. Electronically Signed: Jan Bhardwaj MD at 15:37 EDT , Service support ,
[2021-05-12 15:00] VITALS: BP 113/76; PULSE 72; RESP 20; O2SAT 100
[2021-05-12 16:00] VITALS: BP 113/76; PULSE 82; RESP 22; O2SAT 100
[2021-05-12 16:41] VITALS: BP 117/84; PULSE 78; RESP 20; O2SAT 95
== END 2021-05-12 16:48 | disposition home or self-care (01) ==
PROVIDERS: Emergency Provider Emergency Medicine
DX: R07.9 Chest pain, unspecified (principal); F17.200 Nicotine dependence, unspecified, uncomplicated; Z79.82 Long term (current) use of aspirin
CPT/HCPCS: 71045; 71275; 80048; 84484; 85025; 85379; 93005; 96360; 96361; 99285; J7030; Q9967; A4216

== ENCOUNTER 2023-07-08 14:15 | Emergency (ER) | payer MEDICAID, SELFPAY ==
[2023-07-08] VITALS (8 sets, daily range): BP systolic 120–130; BP diastolic 77–100; PULSE 94–95; RESP 15–18; TEMP 37.1; O2SAT 98; BMI 26.8
--- NOTE | 2023-07-08 14:20 | ED.RN ---
SEEN BY CRISIS, AND PINK SLIPPED. PLACED IN TRIAGE 2 WHILE WAITING A ROOM WITH A ELECTRIC REFRIGERATOR SERVICER/SITTER.
--- NOTE | 2023-07-08 14:34 | CM.ED ---
Social Work SW received call from crisis regarding patient. Pt pink-slipped by crisis due to SI with intent. Pt sent with PD to hospital for medical clearance for psychiatric placement. SW spoke with patient in triage and provided emotional support as ironworker helper shop said patient is distrustful and scared. Pt did report [facility] counselor is coming for support. Pt has been residing at [facility] and had expressed SI to worker. Crisis was coming in for support when they were called out to another facility. metalworker to fax assessment when completed. Ivon Zimmerman COMMISSIONER OF CONCILIATION, LAND LEASING INFORMATION CLERK
[2023-07-08 15:28] LABS: Absolute Lymphocyte Count 1.67 X10^3/uL (0.83-4.51); Absolute Neutrophil Count 4.7 X10^3/uL (2.0-7.7); Basophil# 0.05 X10^3/uL; Basophil% 0.7 % (0-1); Eosinophil# 0.37 X10^3/uL; Eosinophils% 5.2 % (0-5); Hematocrit 44.6 % (37-47); Hemoglobin 14.5 g/dL (12.0-15.0); Lymphocyte # 1.67 X10^3/ul (0.83-4.51); Lymphocyte % 23.6 % (19-41); Mean Corp Hgb Conc 32.5 g/dL (32-36); Mean Corpuscular Hgb 30.5 pg (27.0-32.0); Mean Corpuscular Volume 93.7 fL (81-99); Mean Platelet Vol. 9.5 fl (6.2-12.0); Monocyte# 0.33 X10^3/uL; Monocyte% 4.7 % (0-10); NRBC Flagged by Analyzer 0 % (0-5); Neutrophil # 4.65 X10^3/uL (2.7-7.7); Neutrophil % 65.5 % (47-70); Platelet Count 355 K/mm3 (150-450); RBC Distribution Width CV 13.9 % (11.6-14.6); RBC Distribution Width SD 48.2 fl (35.1-43.9); Red Blood Count 4.76 M/mm3 (4.2-5.4); White Blood Count 7.1 K/mm3 (4.4-11.0)
[2023-07-08 15:34] LABS: Internal QC Validated? YES +Cl - CLEAR BKGD; Pregnancy, Serum, hCG Quali. NEGATIVE Negative
[2023-07-08 15:38] LABS: Anion Gap 2 (5-15); BUN 8 mg/dL (7-18); BUN/Creat Ratio 11.1 RATIO (10-20); Calcium,Total 8.6 mg/dL (8.5-10.1); Chloride 107 mmol/L (98-107); Creatinine, Serum 0.72 mg/dL (0.55-1.02); EST Glomerular Filtration Rate 98 mL/min (>60); Est Glom Filt Rate - Afr Amer 119 mL/min (>60); Estimated Creatinine Clearance 103.07 ml/min; Glucose 89 mg/dL (74-106); Potassium 3.8 mmol/L (3.5-5.1); Sodium Level 139 mmol/L (136-145)
[2023-07-08 15:41] LABS: Alcohol, Blood (Medical)-Serum < 3.0 mg/dL; Amphetamine Urine VISTA NEGATIVE (<1000 ng/mL); Barbiturate Urine VISTA NEGATIVE (< 200 ng/mL); Benzodiazepine Urine VISTA NEGATIVE (< 200 ng/mL); Cocaine Urine VISTA NEGATIVE (< 300 ng/mL); Ecstacy Urine VISTA NEGATIVE (< 500 ng/mL); Methadone Urine VISTA NEGATIVE (< 300 ng/mL); PCP Urine VISTA NEGATIVE (< 25 ng/mL); THC Urine VISTA NEGATIVE (< 50 ng/mL); Vista UDS pH Range 6
--- NOTE | 2023-07-08 15:52 | EX.ED.VIS.PS ---
HPI HPI - Psych History of Present Illness Chief Complaint: Suicidal Informant: patient Narrative Narrative: Patient is a 32-year-old female with history of bipolar disorder as well as polysubstance abuse presenting with depression and passive suicidal ideations. Patient was at the counseling center today. She talked to them about feelings of like a waste of space. She admitted to to the counseling center but was not sure she would follow through. Denies any plan to me at this time. Denies any HI or hallucinations. Notes that she has been sober for methamphetamines for approximately 25 days however she states she will probably end up using again because she likes weight feels that she does not like gaining weight. Denies any physical complaints at this time. Plan any psychiatric medications. Has had prior psychiatric admissions most recently in 2019. Is not established at this time with any psychiatrist. No other complaints at this time. [facility] Medical History Anxiety Bipolar 1 disorder Depression Home Medications albuterol sulfate 90 mcg/actuation aerosol inhaler 1 - 2 puff inhalation Q6H PRN PRN SOB/WHEEZING 11/04/20 [History Last Taken Unknown] Allergy/AdvReac Type Severity Reaction Status Date / Time Food Allergies: Uncoded Allergy Food Verified 07/08/23 15:57 Allergy clindamycin AdvReac Vomiting Verified 07/08/23 15:57 Social History Smoking Status: Heavy Smoker (>10/day) ROS ROS ED Constitutional Constitutional ED: Denies chills or fever(s) Cardiovascular Cardiovascular: Denies chest pain Respiratory/Chest Respiratory/Chest: Denies cough Gastrointestinal Gastrointestinal: Denies nausea or vomiting Musculoskeletal Musculoskeletal: Denies arthralgias or myalgias Integumentary Denies rash Neurologic Neurologic: Denies headache(s) Psychiatric Psychiatric: Reports depression and suicidal ideation; Denies anxiety EXAM Physical Exam Const Vital Signs: 07/08/23 14:17 07/08/23 15:16 07/08/23 16:00 Temperature 98.7 F Temperature Source Temporal Pulse Rate 95 Respiratory Rate 18 16 16 Blood Pressure 130/100 H Blood Pressure Mean 110 Pulse Ox 98 Oxygen Delivery Method Room Air 07/08/23 17:00 Temperature Temperature Source Pulse Rate Respiratory Rate 16 Blood Pressure Blood Pressure Mean Pulse Ox Oxygen Delivery Method Positive well nourished and well developed General Appearance ED: well developed and NAD HEENT Reports moist mucous membranes Eyes PERRL and EOMs intact bilaterally Neck supple Resp normal respiratory effort and clear to auscultation bilaterally Cardio no murmurs Rate: regular rate Rhythm: regular rhythm Extremity normal to inspection Neuro oriented x3 Sensorium / Orientation: alert Psych cooperative Appearance: grossly normal Attitude: calm and withdrawn Activity / Motor Behavior: avoids eye contact Speech: delayed Mood & Affect: depressed Thought Process: impoverished Thought Content: No suicidality, No homicidality, No delusion(s), No hallucination(s) and rumination(s) Attention / Concentration: attention grossly intact and concentration grossly intact Memory / Cognition: cognition grossly intact Insight: limited Judgement: limited Skin Lesions: no lesions Rashes: no rashes MDM MDM MDM Narrative Medical decision making narrative: Sent from the counseling center/[facility] for concerns of worsening depression and suicidal ideation. Patient does appear depressed and is withdrawn. Will be evaluated for inpatient psychiatric care. Patient is appropriate in the ER and cooperative at this time. She is medically cleared. I do think she would benefit from inpatient psychiatric care. Patient does become more anxious and paranoid with her sitter. Is able to be verbally de-escalated and eventually consents to taking 1 mg oral Ativan. She is accepted at [facility] by Dr. Paige. Lab Data Attestation: I reviewed the patient's lab results. Labs: Laboratory Results - last 24 hr 07/08/23 14:36 WBC 7.1 RBC 4.76 Hgb 14.5 Hct 44.6 MCV 93.7 MCH 30.5 MCHC 32.5 RDW Std Deviation 48.2 H RDW Coeff of Halina 13.9 Plt Count 355 MPV 9.5 Immature Gran % (Auto) 0.300 Neut % (Auto) 65.5 Lymph % (Auto) 23.6 Benson % (Auto) 4.7 Eos % (Auto) 5.2 H Baso % (Auto) 0.7 Absolute Neuts (auto) 4.7 Absolute Lymphs (auto) 1.67 Nucleated RBC % 0 Sodium 139 Potassium 3.8 Chloride 107 Carbon Dioxide 30.0 Anion Gap 2 L BUN 8 Creatinine 0.72 Estim Creat Clear Calc 103.07 Est GFR (MDRD) Af Amer 119 Est GFR (MDRD) Non-Af 98 BUN/Creatinine Ratio 11.1 Glucose 89 Calcium 8.6 Serum , Qual NEGATIVE Urine Opiates Screen NEGATIVE Urine Methadone Screen NEGATIVE Ur Barbiturates Screen NEGATIVE Ur Phencyclidine Scrn NEGATIVE Ur Amphetamines Screen NEGATIVE MDMA (Ecstasy) Screen NEGATIVE U Benzodiazepines Scrn NEGATIVE Urine Cocaine Screen NEGATIVE U Cannabinoids Screen NEGATIVE Ur Drug Screen Comment Ethyl Alcohol < 3.0 Rhythm Strip Rhythm Strip: Sinus Rhythm Rate: 81 Ectopy: None EKG Initial EKG: Attestation: I personally reviewed and interpreted this EKG as follows: Interpretation: Sinus Rhythm Comments: Normal sinus rhythm at a rate of 81 bpm with sinus arrhythmia Normal axis Normal intervals Normal ST segments Discharge Plan Triage Chief Complaint: Suicidal ED Provider: Malinda James Dx/Rx/DC Orders Clinical Impression: Suicidal ideations, Anxiety and depression Prescriptions: No Action albuterol sulfate 1 INHALER inhaler 1 - 2 puff INHALATION Q6H PRN PRN (Reason: SOB/WHEEZING) Primary Care Provider: Care Physician,No Primary Referrals: Care Physician,No Primary [Primary Care Provider] - Disposition Disposition: Psychiatric Hospital or Unit Discharge Location: [facility]
--- NOTE | 2023-07-08 17:28 | NURSING ---
CALLED [facility], ETA IS 3 HRS
[2023-07-08] MEDS: LORazepam 1 MG Tablet PO (17:46)
--- NOTE | 2023-07-08 17:53 | ED.RN ---
Per Dr. Erika hayward to d/c sitter at this time.
--- NOTE | 2023-07-08 19:15 | CM.ED ---
Social Work SW introduced self and role to patient. SW discussed past placements with pt and whether dual dx is needed. Pt declined dual diagnosis because she is almost a month clean. Due to history dual treatment is still appropriate. Pt angry and demanding to go some where that will allow her to have her phone. SW explained that will be up to the facility. Pt reports all she needs is her phone and that she doesn't need help just my phone because my bf is in longterm. Pt reports she refuses to go anywhere unless she can have her phone. Pt very emotional regarding her food served to her and tearful/agitated due to wanting [employer] food and not hospital food. Patient yelled, All I want is [employer] and my father wont bring it to me. I don't want this nasty food. SW provided emotional support. [facility] faxed assessment to SW. SW referred patient and pt accepted to [facility] dual diagnosis unit. [place] slip requested and faxed to [facility]. Pt is awaiting transport. [facility] faxed medical clearance to [facility] for their records. Ivon Zimmerman DIRECTOR OF TAX SERVICES, HEAVY FORGING MACHINE OPERATOR
[2023-07-08] MEDS: Acetaminophen 325 MG Tablet 650 MG PO (21:51)
--- NOTE | 2023-07-08 22:33 | NURSING ---
JANIYA FROM [facility] CALLED AND TOLD ME THEY NEEDED TO BUMP THE PATIENTS RIDE FROM 2230 TONIGHT TO 7AM TOMORROW (07/09) DUE TO THEM BEING BUSY.
[2023-07-08] MEDS: hydrOXYzine PAM 25 MG Capsule PO (22:44)
[2023-07-09] VITALS: RESP 15
[2023-07-09 01:00] VITALS: RESP 15
[2023-07-09 02:00] VITALS: RESP 15
[2023-07-09 03:00] VITALS: RESP 16
[2023-07-09 05:50] VITALS: RESP 16
[2023-07-09 06:06] VITALS: BP 97/64; PULSE 57
--- NOTE | 2023-07-09 07:17 | ED.RN ---
[facility] called at 0700, checked gps and medic is in route 31 minutes away.
== END 2023-07-09 08:12 ==
PROVIDERS: Emergency Provider Emergency Medicine; Visit Provider Emergency Medicine
DX: R45.851 Suicidal ideations (principal); F41.9 Anxiety disorder, unspecified; F32.A Depression, unspecified; F17.200 Nicotine dependence, unspecified, uncomplicated
CPT/HCPCS: 80048; 80307; 82077; 84703; 85025; 87811; 93005; 99285